=== PATIENT | female | born 1995 | race Caucasian/White ===

== ENCOUNTER 2017-07-09 14:09 | Emergency (ER) | payer BC, SELFPAY ==
[2017-07-09 14:40] VITALS: BP 101/83; PULSE 65; RESP 18; TEMP 36.8; O2SAT 98; BMI 22.1
--- NOTE | 2017-07-09 14:51 | HMH.EDGENADL ---
ED Disposition Clinical Impression: Gastroenteritis Food poisoning Qualifiers: Encounter type: initial encounter Injury intent: undetermined intent Qualified Code(s): T62.94XA - Toxic effect of unspecified noxious substance eaten as food, undetermined, initial encounter Disposition: Home, Self-Care Condition on Discharge: Fair Instructions: DI for Diarrhea and Traveler's Diarrhea -- Adult, DI for Nausea -- Adult Additional Instructions: Clear liquids for 24 to 48 hours and then advance to BRATS diet, then regular Prescriptions: Loperamide HCl [Loperamide] 2 mg PO DIRECTED #30 tab Ondansetron HCl [Zofran 4mg Tab] 4 mg PO Q6H 8 Days #30 tab Referrals: Darcy Fleming MD [Primary Care Provider] - Time of Disposition: 16:47 - Critical Care Critical Care Time: No Attestation: On 07/09/17, the high probability of a clinically significant, sudden or life threatening deterioration of the following system(s) required my full and direct attention, intervention and personal management. The time I documented below is in addition to time spent performing reported procedures but includes the following listed in this critical care notation. Medical Decision Making - Medical Records Medical records reviewed: Yes: I reviewed the patient's medical records. Vital Signs: 07/09/17 14:40 Temperature 98.2 F Temperature Source Oral Pulse Rate [Right Brachial] 65 Respiratory Rate 18 Blood Pressure [Right Arm] 101/83 Blood Pressure Mean [Right Arm] 89 Blood Pressure Source [Right Arm] Automatic Cuff Blood Pressure Position [Right Arm] Sitting 02 Sat by Pulse Oximetry 98 Oxygen Delivery Method Room Air - Lab Data Lab results reviewed: Yes: I reviewed the patient's lab results. Lab Results 07/09/17 14:50: WBC 13.5 H, RBC 5.51 H, Hgb 16.1, Hct 49.2 H, MCV 89.3, MCH 29.2, MCHC 32.8, RDW 12.3, Plt Count 291, MPV 8.3, Neut % (Auto) 84.3 H, Lymph % (Auto) 8.2 L, [place] % (Auto) 6.3, Eos % (Auto) 1.1, Baso % (Auto) 0.2, Neut # (Auto) 11.4 H, Lymph # (Auto) 1.1, [place] # (Auto) 0.9, Eos # (Auto) 0.2, Baso # (Auto) 0.0 07/09/17 14:50: Sodium 141, Potassium 4.5, Chloride 106, Carbon Dioxide 25, Anion Gap 14.5, BUN 10, Creatinine 0.75, Estimated Creat Clear 104, Estimated GFR 96, Est GFR ( Amer) 116, Glucose 101, Calcium 9.5, Total Bilirubin 0.3, AST 13 L, ALT 23, Alkaline Phosphatase 85, Total Protein 9.0 H, Albumin 4.7, Globulin 4.3 H, Albumin/Globulin Ratio 1.1 Result diagrams: 07/09/17 14:50 07/09/17 14:50 Orders (Tests/Meds): ED MEDICATIONS Generic Name Dose Route Start Last Admin Trade Name Freq PRN Reason Stop Dose Admin Sodium Chloride 1,000 mls @ 999 mls/hr 07/09/17 15:45 07/09/17 15:45 Sod Chlor 0.9% 1000ml Bag IV 07/09/17 16:45 999 mls/hr .Q1H1M SHAI Administration Discontinued Medications Generic Name Dose Route Start Last Admin Trade Name Freq PRN Reason Stop Dose Admin Loperamide HCl 4 mg 07/09/17 15:43 07/09/17 15:44 Imodium 2 Mg Capsule PO 07/09/17 15:44 4 mg ONCE ONE Administration Ondansetron HCl 4 mg 07/09/17 15:43 07/09/17 15:45 Zofran 4mg/2ml Vial IV 07/09/17 15:44 4 mg ONCE ONE Administration ORDERS Category Date Time Status KUB (single view) [XR KUB] Stat Exams 07/09/17 14:57 Taken Diarrhea Panel, PCR Stat Lab 07/09/17 14:56 Ordered Lactic Acid Stat Lab 07/09/17 14:56 Ordered Urinalysis and Microscopic Stat Lab 07/09/17 14:56 Ordered - Radiology Data #1 Image(s): Abdomen Image Reviewed: Yes I reviewed the patient's radiology results, Yes I reviewed the patient's radiology image Preliminary Findings: Normal/NAD - Zay Inquiry Pt receiving controlled substance: No Zay was queried for this patient: No General Adult HPI - General Chief complaint: Nausea/Vomiting/Diarrhea Stated complaint: nausea vomiting diarrhea Time Seen by Provider: 07/09/17 14:51 Mode of Arrival: Family Vehicle Limitations: No Limitations Robin
--- NOTE | 2017-07-09 14:57 | XR_ITS ---
XR KUB CLINICAL INDICATION: ITS.REASON: abdominal pain, vomiting, diarrhea ORDERING PHYSICIAN: Kady Faria MD PATIENT AGE: 22 years COMPARISON: None FINDINGS: Nonspecific nonobstructive bowel gas pattern. No abnormal calcifications or acute bony anomalies. IMPRESSION: No acute finding
[2017-07-09 15:16] LABS: Alanine Aminotransferase 23 U/L (12-78); Albumin Level 4.7 gm/dL (3.4-5.0); Albumin/Globulin Ratio 1.1 (1.1-1.8); Alkaline Phosphatase 85 U/L (46-116); Anion Gap 14.5 mEq/L (5-15); Aspartate Amino Transferase 13 U/L (15-37); Bilirubin,Total 0.3 mg/dL (0.2-1.0); Blood Urea Nitrogen 10 mg/dL (7-18); Calcium 9.5 mg/dL (8.5-10.1); Carbon Dioxide 25 mmol/L (21.0-32.0); Chloride 106 mmol/L (98-107); Creatinine Clearance Estimated 104 mL/min (0-300); Creatinine,Serum 0.75 mg/dL (0.55-1.02); Estimated Glomerular Filt Rate 96 ml/min (>60); GFR (African American) 116 ML/MIN (>60); Globulin 4.3 gm/dl (1.3-3.2); Glucose 101 mg/dL (74-106); Potassium 4.5 mmoL/L (3.5-5.1); Sodium 141 mmol/L (136-145)
[2017-07-09 15:20] LABS: Basophils % 0.2 % (0.1-2.0); Eosinophils # 0.2 K/mm3 (0.0-0.4); Eosinophils % 1.1 % (0.1-12.0); Hematocrit 49.2 % (37.0-47.0); Hemoglobin 16.1 g/dL (12.2-16.2); Lymphocytes # 1.1 K/mm3 (0.7-4.5); Lymphocytes % 8.2 K/mm3 (10-50); Mean Corpuscular HGB Conc 32.8 g/dL (31.8-35.4); Mean Corpuscular Hemoglobin 29.2 pg (27.0-31.2); Mean Corpuscular Volume 89.3 fl (81-99); Mean Platelet Volume 8.3 fl (7.4-10.4); Monocytes # 0.9 K/mm3 (0.1-1.0); Monocytes % 6.3 % (1.7-9.3); Neutrophils # 11.4 K/mm3 (1.8-7.8); Neutrophils % 84.3 % (37.0-80.0); Platelet Count 291 K/mm3 (142-424); Red Blood Count 5.51 M/mm3 (4.20-5.40); Red Cell Distribution Width 12.3 % (11.5-17.5); White Blood Count 13.5 K/mm3 (4.8-10.8)
[2017-07-09 17:01] VITALS: BP 121/70; PULSE 78; RESP 20; TEMP 36.6; O2SAT 100
== END 2017-07-09 17:02 | disposition home or self-care (01) ==
PROVIDERS: Emergency Provider General Practice; PCP Family Medicine
DX: T62.94XA Toxic effect of unspecified noxious substance eaten as food, undetermined, initial encounter (principal); K52.9 Noninfective gastroenteritis and colitis, unspecified; F17.210 Nicotine dependence, cigarettes, uncomplicated; Z88.0 Allergy status to penicillin; Z88.2 Allergy status to sulfonamides
CPT/HCPCS: 74018; 80053; 85025; 96365; 96374; 96375; 99283; J2405

== ENCOUNTER → 2017-12-26 14:50 | Outpatient (CLI) | payer BC, SELFPAY ==
[2017-12-26 15:48] LABS: HCG Qualitative, Serum Negative (Negative)
== END ==
PROVIDERS: PCP Family Medicine; Visit Provider Nurse Practitioner Obstetrics & Gynecology
DX: Z32.00 Encounter for pregnancy test, result unknown (principal)
CPT/HCPCS: 36415; 84703

== ENCOUNTER → 2018-12-17 13:11 | Outpatient (CLI) | payer BC, SELFPAY ==
--- NOTE | 2018-12-17 13:17 | XR_ITS ---
XR foot wt bearing LT 3V HISTORY: ITS.REASON: pain, great toe ORDERING PHYSICIAN: Rosemarie Munguia DPM PATIENT AGE: 23 years COMPARISON: None FINDINGS: No fracture or dislocation. No lytic or blastic change. There is normal mineralization.. There is a small osteophyte along the distal and lateral aspect of the first metatarsal. The first metatarsophalangeal joint space is well preserved. IMPRESSION: Mild osteophyte formation at the distal first metatarsal otherwise negative
== END ==
PROVIDERS: PCP Family Medicine; Visit Provider Podiatrist
DX: M79.672 Pain in left foot (principal)
CPT/HCPCS: 73630

== ENCOUNTER → 2019-05-26 14:39 | Outpatient (CLI) | payer BC, SELFPAY ==
--- NOTE | 2019-05-26 14:39 | US_ITS ---
PROCEDURE: US TRANSVAGINAL CLINICAL INDICATION: US T/V- Painful intercourse Collect COMPARISON: No exams were available for comparison FINDINGS: UTERUS: 7cm x 3cmx 3cm with a combined endometrial thickness of 1.8mm LEFT OVARY: [id number] with a volume of 6.7ml. RIGHT OVARY: [id number] with a volume of 7.8ml. Minimal amount of fluid is present within the endometrial canal inferiorly. There are ovarian follicles bilaterally with a 2.3 cm right ovarian cyst noted. No cul-de-sac fluid. IMPRESSION: 2.3 cm right ovarian cyst with small bilateral ovarian follicles and minimal amount fluid in the endometrial cavity Dictated by: Henry Mitchell MD 05/27/2019 07:10 Electronically signed by Henry Mitchell MD in [place] 05/27/2019 07:10
== END ==
PROVIDERS: PCP Family Medicine; Visit Provider Nurse Practitioner Obstetrics & Gynecology
DX: N94.10 Unspecified dyspareunia (principal)
CPT/HCPCS: 76830

== ENCOUNTER → 2020-02-18 16:46 | Outpatient (CLI) | payer BC, SELFPAY ==
[2020-02-18 18:55] LABS: HCG,Quantitative 24435 mIU/ml (0-5.42)
== END ==
PROVIDERS: PCP Family Medicine; Visit Provider Nurse Practitioner Obstetrics & Gynecology
DX: Z32.00 Encounter for pregnancy test, result unknown (principal)
CPT/HCPCS: 36415; 84702

== ENCOUNTER → 2020-03-01 16:54 | Outpatient (CLI) | payer BC, SELFPAY ==
[2020-03-04 10:17] LABS: Neisseria gonorrhoeae, NAA Negative (Negative)
== END ==
PROVIDERS: Visit Provider Nurse Practitioner Obstetrics & Gynecology
DX: Z34.90 Encounter for supervision of normal pregnancy, unspecified, unspecified trimester (principal)
CPT/HCPCS: 87491; 87591

== ENCOUNTER → 2020-03-05 10:26 | Outpatient (CLI) | payer BC, SELFPAY ==
--- NOTE | 2020-03-05 10:33 | US_ITS ---
PROCEDURE: US OB TRANSVAGINAL CLINICAL INDICATION: for dates COMPARISON: US US TRANSVAGINAL from 05/26/2019 FINDINGS: An intrauterine gestational sac is present with a pole with a crown-rump length of 1.9cm correlating to gestational age of 8weeks 2days. heart tones are present with an FHR of 163bpm. Yolk sac is noted. There are bilateral ovarian follicles with possible hemorrhagic corpus luteum cyst on the left at 1.4 cm. IMPRESSION: Live IUP at 8 weeks 2 days Estimated due date by Ultrasound is 10/13/2020 Dictated by: Henry Mitchell MD 03/05/2020 11:34 Henry Mitchell MD in [facility] 03/05/2020 11:34
== END ==
PROVIDERS: PCP Family Medicine; Visit Provider Nurse Practitioner Obstetrics & Gynecology
DX: Z34.90 Encounter for supervision of normal pregnancy, unspecified, unspecified trimester (principal); O26.841 Uterine size-date discrepancy, first trimester
CPT/HCPCS: 76817

== ENCOUNTER → 2020-04-21 14:23 | Outpatient (CLI) | payer MEDICAID, SELFPAY ==
[2020-04-21 15:52] LABS: Basophils % 0.3 % (0.1-2.0); Eosinophils # 0.1 K/mm3 (0.0-0.4); Eosinophils % 1.2 % (0.1-12.0); Hematocrit 41.4 % (37.0-47.0); Hemoglobin 13.2 g/dL (12.2-16.2); Lymphocytes # 2.6 K/mm3 (0.7-4.5); Lymphocytes % 26.6 % (10-50); Mean Corpuscular HGB Conc 31.8 g/dL (31.8-35.4); Mean Corpuscular Hemoglobin 30.6 pg (27.0-31.2); Mean Corpuscular Volume 96.3 fl (81-99); Mean Platelet Volume 8.7 fl (7.4-10.4); Monocytes # 0.7 K/mm3 (0.1-1.0); Monocytes % 7.4 % (1.7-9.3); Neutrophils # 6.4 K/mm3 (1.8-7.8); Neutrophils % 64.5 % (37.0-80.0); Platelet Count 254 K/mm3 (142-424); Red Cell Distribution Width 12.7 % (11.5-17.5); White Blood Count 9.9 K/mm3 (4.8-10.8)
[2020-04-23 10:41] LABS: Hepatitis B Surface Antigen Negative (Negative)
[2020-04-23 10:42] LABS: HIV Screen 4th Generation wRfx Non Reactive (Non Reactive); Hepatitis C Antibody <0.1 s/co ratio (0.0-0.9); Rubella Antibodies, IgG 8.81 index (Immune >0.99)
[2020-04-23 13:02] LABS: Rapid Plasma Reagin Ab Titer Non Reactive (NonRea<1:1)
== END ==
PROVIDERS: Visit Provider Nurse Practitioner Obstetrics & Gynecology
DX: Z34.90 Encounter for supervision of normal pregnancy, unspecified, unspecified trimester (principal)
CPT/HCPCS: 36415; 85025; 86592; 86703; 86762; 86850; 87340; 87380; G0432

== ENCOUNTER → 2020-04-22 13:36 | Outpatient (CLI) | payer MEDICAID, SELFPAY ==
[2020-04-22 13:39] LABS: Microscopic, Urine URINE MICROSCOPIC (MICROSCOPIC)
[2020-04-22 14:28] LABS: Appearance,Urine CLEAR (Clear); Bilirubin,Urine Negative (Negative); Blood, Urine Negative (Negative); Color,Urine YELLOW (Yellow); Glucose,Urine (UA) Negative (Negative); Ketones,Urine Negative (Negative); Leukocyte Esterase,Urine TRACE (Negative); Nitrate,Urine Negative (Negative); PH,Urine 7.5 (5.0-8.5); Protein,Urine Negative (Negative); Specific Gravity, Urine 1.025 (1.005-1.030); Urobilinogen,Urine 0.2 EU/dl (0.2)
[2020-04-22 14:45] LABS: WBC,Urine Occasional #/hpf (0-3)
[2020-04-22 14:46] LABS: Bacteria,Urine Trace /lpf
== END ==
PROVIDERS: Visit Provider Nurse Practitioner Obstetrics & Gynecology
DX: Z34.90 Encounter for supervision of normal pregnancy, unspecified, unspecified trimester (principal)
CPT/HCPCS: 81001

== ENCOUNTER → 2020-05-27 08:58 | Outpatient (CLI) | payer MEDICAID, SELFPAY ==
--- NOTE | 2020-05-27 08:58 | US_ITS ---
PROCEDURE: US OB /MATERNAL DETAIL CLINICAL INDICATION: 20 week gestation COMPARISON: US US OB TRANSVAGINAL from 03/05/2020 FINDINGS: There is a single live fetus which is in breech presentation. Cervix is closed and measures 4 cm. Placenta is anterior and grade 1. There appears to be an accessory lobe posteriorly. Complete survey performed and was unremarkable on the submitted images as in PACS. No discrete anomalies identified on survey imaging by technologist. Active fetus. Three-vessel cord with satisfactory umbilical cord insertion. 4- chamber heart noted. Survey of brain & ventricles Unremarkable. Face and neck survey unremarkable. Diaphragm and chest views unremarkable. Abdomen: Both kidneys noted and unremarkable. Stomach noted and satisfactory. Spine: Survey of the spine satisfactory with no anomalies identified nor imaged. Both arms and legs noted. Amniotic Fluid: Adequate. Maternal adnexa: No significant findings. Measurements: Average ultrasound age 20weeks 3days. Gestational Age 20weeks 2days Estimated due date by ultrasound age 0510/11/2020. Estimated weight 353g BPD = 20weeks 5days OFD = 20weeks 5days HC = 19weeks 6days AC = 21weeks 2days FL = 19weeks 5days Growth Percentile= 53percent% Heart Rate = 139bpm Cerebellum = 20weeks 6days, 2.05cm Humerus = 20weeks 5days, 3.20cm HC/AC is 1.07 CI is 0.79 FL/BPD is 0.64 FL/AC is 0.19 IMPRESSION: Live IUP at 20 weeks 3 days. Breech presentation. No obvious anomalies. Please see above for detail. Dictated by: Henry Mitchell MD 05/28/2020 10:10 Henry Mitchell MD in [facility] 05/28/2020 10:10
== END ==
PROVIDERS: PCP Family Medicine; Visit Provider Nurse Practitioner Obstetrics & Gynecology
DX: Z34.90 Encounter for supervision of normal pregnancy, unspecified, unspecified trimester (principal); Z3A.20 20 weeks gestation of pregnancy
CPT/HCPCS: 76811

== ENCOUNTER 2020-09-09 17:40 | Outpatient (CLI) | payer MEDICAID, SELFPAY ==
[2020-09-09 17:50] VITALS: BMI 28.1
[2020-09-09 17:54] VITALS: BP 116/73; PULSE 87; RESP 16; TEMP 37.1; O2SAT 99; BMI 28.1
[2020-09-09 18:00] LABS: Microscopic, Urine URINE MICROSCOPIC (MICROSCOPIC)
[2020-09-09 18:01] LABS: Appearance,Urine CLOUDY (Clear); Bilirubin,Urine Negative (Negative); Blood, Urine Negative (Negative); Color,Urine YELLOW (Yellow); Glucose,Urine (UA) Negative (Negative); Ketones,Urine Negative (Negative); Leukocyte Esterase,Urine 2+ (Negative); Nitrate,Urine Negative (Negative); Protein,Urine Negative (Negative); Specific Gravity, Urine >= 1.030 (1.005-1.030); Urobilinogen,Urine 0.2 EU/dl (0.2)
[2020-09-09 18:08] LABS: Bacteria,Urine 4+ /lpf; Mucus,Urine 2+ /lpf; WBC,Urine 20-50 #/hpf (0-3)
[2020-09-09 18:17] LABS: Amphetamine/Metha Screen,Urine Negative ng/ml (<1000); Barbiturates Screen,Urine Negative ng/ml (<200)
[2020-09-09 18:18] LABS: Benzodiazepines Screen,Urine Negative ng/ml (<200); Cannabinoid Screen,Urine Negative ng/ml (<50)
[2020-09-09 18:19] LABS: Cocaine Screen,Urine Negative ng/ml (<300)
[2020-09-09 18:20] LABS: Methadone Screen,Urine Negative ng/ml (<300); Opiate Screen,Urine Negative ng/ml (<300)
[2020-09-09 18:23] LABS: Phencyclidine Screen,Urine Negative ng/ml (<25)
== END 2020-09-09 18:30 | disposition home or self-care (01) ==
LOC: OBOUT 17:42 → OB 17:45
PROVIDERS: PCP Family Medicine; Visit Provider Obstetrics & Gynecology
DX: O36.8130 Decreased fetal movements, third trimester, not applicable or unspecified (principal); Z3A.35 35 weeks gestation of pregnancy
CPT/HCPCS: 59025; 80305; 81001; 87086; G0463

== ENCOUNTER → 2020-09-15 17:32 | Outpatient (CLI) | payer MEDICAID, SELFPAY | PROVIDERS: Visit Provider Nurse Practitioner Obstetrics & Gynecology | DX: Z34.90 Encounter for supervision of normal pregnancy, unspecified, unspecified trimester (principal) | CPT/HCPCS: 86403; 88305 ==

== ENCOUNTER → 2020-10-10 09:58 | Outpatient (CLI) | payer MEDICAID, SELFPAY | PROVIDERS: PCP Family Medicine; Visit Provider Nurse Practitioner Obstetrics & Gynecology | DX: Z11.52 Encounter for screening for COVID-19 (principal) | CPT/HCPCS: U0003 ==

== ENCOUNTER 2020-10-11 05:14 | Inpatient (IN) | payer MEDICAID, SELFPAY ==
[2020-10-11 05:27] VITALS: BMI 28.4
[2020-10-11 05:58] LABS: Microscopic, Urine URINE MICROSCOPIC (MICROSCOPIC)
[2020-10-11 06:00] VITALS: BP 117/66; PULSE 81; RESP 18; TEMP 36.6; O2SAT 97; BMI 28.4
[2020-10-11 06:02] LABS: Basophils % 0.3 % (0.1-2.0); Eosinophils # 0.2 K/mm3 (0.0-0.4); Eosinophils % 1.3 % (0.1-12.0); Hematocrit 35.4 % (37.0-47.0); Hemoglobin 11.5 g/dL (12.2-16.2); Lymphocytes # 3.9 K/mm3 (0.7-4.5); Lymphocytes % 25.4 % (10-50); Mean Corpuscular HGB Conc 32.6 g/dL (31.8-35.4); Mean Corpuscular Hemoglobin 29.2 pg (27.0-31.2); Mean Corpuscular Volume 89.4 fl (81-99); Mean Platelet Volume 9.1 fl (7.4-10.4); Monocytes # 1.4 K/mm3 (0.1-1.0); Monocytes % 9.5 % (1.7-9.3); Neutrophils # 9.6 K/mm3 (1.8-7.8); Neutrophils % 63.4 % (37.0-80.0); Platelet Count 408 K/mm3 (142-424); Red Blood Count 3.95 M/mm3 (4.20-5.40); Red Cell Distribution Width 13.1 % (11.5-17.5); White Blood Count 15.1 K/mm3 (4.8-10.8)
[2020-10-11 06:03] LABS: Appearance,Urine SL CLOUDY (Clear); Bilirubin,Urine Negative (Negative); Blood, Urine Negative (Negative); Color,Urine YELLOW (Yellow); Glucose,Urine (UA) Negative (Negative); Ketones,Urine Negative (Negative); Leukocyte Esterase,Urine 3+ (Negative); Nitrate,Urine Negative (Negative); Protein,Urine Negative (Negative); Urobilinogen,Urine 0.2 EU/dl (0.2)
[2020-10-11 06:05] LABS: MANUAL DIFFERENTIAL MANUAL DIFFERENTIAL (MANUAL DIFF)
[2020-10-11 06:13] LABS: Bacteria,Urine 1+ /lpf; WBC,Urine 20-50 #/hpf (0-3)
[2020-10-11 06:14] LABS: Barbiturates Screen,Urine Negative ng/ml (<200); Benzodiazepines Screen,Urine Negative ng/ml (<200)
[2020-10-11 06:15] LABS: Amphetamine/Metha Screen,Urine Negative ng/ml (<1000); Methadone Screen,Urine Negative ng/ml (<300)
[2020-10-11 06:16] LABS: Cannabinoid Screen,Urine Negative ng/ml (<50)
[2020-10-11 06:17] LABS: Cocaine Screen,Urine Negative ng/ml (<300); Opiate Screen,Urine Negative ng/ml (<300)
[2020-10-11 06:18] LABS: Phencyclidine Screen,Urine Negative ng/ml (<25)
[2020-10-11 06:58] LABS: Lymphocytes % 18 % (10-50); Monocytes % 5 % (2-9); Neutrophils % 77 % (42-76); Platelet Estimate Normal; RBC Morphology Normal; Total Cells Counted 100
--- NOTE | 2020-10-11 07:28 | HMH.LABNOT ---
Labor Note - Subjective: Date: 10/11/20 Time: 07:28 regular contraction - Objective: NST:: Reactive Contractions:: every 4-5 minutes Cervical Dilation:: 2 Effacement:: 75% Station: -1 Membranes: artificially ruptured - Fetus: Monitoring?: Yes monitoring type:: Internal and External Comment:: I inserted an IUPC. 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
--- NOTE | 2020-10-11 07:29 | HMH.OBAPHP ---
OB - H&P: HPI Antepartum - History of Present Illness Chief complaint: Term History of present illness: She is a 25-year-old 1 para 0 at 40 weeks gestational age. She is term so we have decided to induce her labor. - History of Present Criteria for establishing EDC:: LMP confirmed by 1st trimester US care: good care Ultrasounds: normal 1st trimester US, normal mid trimester US Obstetrical complications: none Medical complications: none [facility] History I have reviewed the patient's past medical history: Yes Medical History: Reports:: Atrial Fibrillation, Cancer, Cardiomyopathy, Urinary Tract Infection Denies:: Diabetes Mellitus Type 1, Diabetes Mellitus Type 2, Hypertension, MRSA *Have you ever received a pneumonia vaccine?: No *Have you received a flu vaccine this season?: No Other Surgeries: Yes: Other. No: Amputation: No Fractures: No - *Social History Smoking Status: Current every day smoker Tobacco Type: cigarettes # Packs/Day (cigarettes): 1 Alcohol Intake: never Alcohol Intake Frequency:: other Substance Use Type: marijuana *Occupational Status:: employed Housing: house *Travel in the last 8 weeks: None Family Hx:: Diabetes, Hypertension Para: 0 Review of Systems - Review of Systems Review of systems:: pertinent systems reviewed and negative unless documented below Meds Home Medications Medication Instructions Recorded Confirmed Type pediatric multivitamin no.19-folic tab PO BID tab 03/25/20 10/06/20 History acid 200 mcg chewable tablet ferrous gluconate 324 mg (37.5 mg 324 mg PO DAILY #30 tab 06/23/20 10/06/20 Rx iron) tablet Allergies Allergy/AdvReac Type Severity Reaction Status Date / Time Penicillins [PENICILLINS] Allergy Unknown Verified 10/06/20 14:08 Sulfa (Sulfonamide Allergy Unknown Verified 10/06/20 14:08 Antibiotics) [SULFA (SULFONAMIDE ANTIBIOTICS)] adhesive tape Allergy Rash Verified 10/06/20 14:08 OB - H&P: Exam - Physical Exam Vital signs: Temp Pulse Resp BP Pulse Ox 97.8 F 81 18 117/66 97 10/11/20 06:00 10/11/20 06:00 10/11/20 06:00 10/11/20 06:00 10/11/20 06:00 - Constitutional no acute distress - Routine HEENT Exam Head: Present: normocephalic Eye: Present: EOMI, PERRL ENT: Present: mucous membranes moist - Routine Neck Exam Present: supple, full ROM - Routine Respiratory Exam Absent: accessory muscle use (good air entry bilaterally), respiratory distress, wheezes, crackles - Routine Cardiovascular Exam Present: RRR. Absent: murmur - Routine Abdominal Exam Present: soft, normoactive bowel sounds. Absent: tenderness, distended, guarding - Routine Rectal Exam Patient deferred: visual exam, digital exam - Routine Exam Patient deferred: external exam, groin exam, perineal exam - Routine Extremities Exam Present: full ROM. Absent: cyanosis, edema - Routine Skin Exam Present: intact. Absent: cyanosis - Routine Neurological Exam Present: alert, oriented X3 - Routine Psychiatric Exam Present: normal affect OB - Results - Labs Labs: Short CBC 10/11/20 Range/Units 05:45 WBC 15.1 H (4.8-10.8) K/mm3 Hgb 11.5 L (12.2-16.2) g/dL Hct 35.4 L (37.0-47.0) % Plt Count 408 (142-424) K/mm3 Urine 10/11/20 Range/Units 05:30 Urine Color Yellow (Yellow) Urine Appearance Sl cloudy (Clear) Urine pH 7.0 (5.0-8.5) Ur Specific [place] 1.020 (1.005-1.030) Urine Protein Negative (Negative) Urine Glucose (UA) Negative (Negative) OB - A/P Antepartum (1) Normal delivery at term Status: Acute - Additional Plan Planning to breastfeed?: Yes Plan: induction Additional Information:: She is currently on oxytocin. She is having contractions. She is 2 cm. I ruptured her membranes and there was clear fluid. An IUPC was inserted. We will expect a vaginal delivery.
[2020-10-11 07:30] VITALS: BP 108/84; PULSE 71; RESP 18; TEMP 36.5; O2SAT 99
[2020-10-11 11:29] VITALS: BP 119/71; PULSE 53; RESP 16; TEMP 36.4
--- NOTE | 2020-10-11 11:32 | HMH.LABNOT ---
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 Her cervix is dilating. She is now 4 cm. Nonstress test is reactive. Contractions are every 2 minutes.
--- NOTE | 2020-10-11 14:56 | HMH.LABNOT ---
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 The nonstress test is reactive. She has changed her cervix from 4 to 5 cm. The cervix is thinned out more. She is very uncomfortable and would like an epidural.
[2020-10-11 15:04] VITALS: BP 105/59; PULSE 61; RESP 16; TEMP 36.4; O2SAT 98
--- NOTE | 2020-10-11 17:20 | HMH.LABNOT ---
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
[2020-10-11 19:26] VITALS: BP 145/63; PULSE 102; RESP 18; TEMP 36.6; O2SAT 100
--- NOTE | 2020-10-11 20:28 | HMH.LABNOT ---
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 The baby's head is coming down. There seems to be adequate space for the baby's head. We will expect a vaginal delivery.
--- NOTE | 2020-10-11 21:36 | HMH.DN ---
- Delivery Note Delivery Date:: 10/11/20 Delivery Time:: 20:50 Anesthesia Type: Epidural Was labor medically induced?: Yes Induction method: per pitocin protocol Gestational age (weeks): 40 Infant delivered prior to 39 weeks?: No Infant Gender: Male at 1 minute: 9 at 5 minutes: 9 LAC or MLE?: LAC Delivery Procedure:: She is a 25-year-old 1 para 0 at 40 weeks gestational age. We brought her in for induction of labor at term. She is started on IV oxytocin had her membranes ruptured. Under labor epidural she progressed to full dilation and delivered spontaneously a liveborn male child at 8:50 PM in the evening of October 11, 2020. On deliver the head it was noted that the shoulder was having difficulty releasing so we performed Devi along with suprapubic pressure. This freed up the anterior shoulder and the rest the 's body then delivered atraumatically. The baby was stimulated and cried and was quite vigorous. The oropharynx and nasopharynx were bulb suction. We allowed the cord to continue to pulsate for approximately 1 minute. The cord was then doubly clamped and cut and the infant was handed off to Dr. Hale who assigned Apgars of 9 at 1 minute and 9 at 5 minutes. We then obtained cord blood as well as cord pH. The baby was a liveborn male child weighing 8 pounds 13 ounces. He was 20-1/2 inches long. She received IV oxytocin using gentle traction the cord and countertraction on the fundus I was able to easily deliver the placenta 3 minutes after delivery. It had a normal three-vessel cord. She had a very short perineum and unfortunately had 4th degree perineal laceration. The rectal mucosa was closed with interrupted 2-0 Vicryl suture. This was followed by grasping the sphincter muscles and closing ease with interrupted [id number] 2-0 PDS suture. I then closed the vaginal closed using running 2-0 Vicryl suture in a locked fashion. The PDS sutures were then tied. I then closed the peritoneum using interrupted 2-0 Vicryl suture in a subcuticular fashion. She has a positive blood, she is rubella immune and was group B streptococcus negative. She plans to breast-feed. 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 Hale. Her estimated blood loss was approximately 400 cc. Laceration:: vaginal Placental Delivery Description: Spontaneous
[2020-10-12 03:21] VITALS: BP 108/56; PULSE 69; RESP 18; TEMP 36.6; O2SAT 98
[2020-10-12 06:48] LABS: Hematocrit 31.6 % (37.0-47.0); Hemoglobin 10.4 g/dL (12.2-16.2)
[2020-10-12 07:48] VITALS: BP 121/81; PULSE 72; RESP 18; TEMP 36.7; O2SAT 98
--- NOTE | 2020-10-12 08:57 | P.PN_ITS ---
[facility] Anesthesia Checklist - Structural Data Admitted From: Inpatient Planned Operative Procedure/s: labor epidural Consent for Planned Operative Procedure(s) Verified: Yes - Airway Assessment C-Spine Mobility Assessed: Yes TMJ Mobility Assessed: Yes Dentition: Good Dentition - Neurological Assessment Level of Consciousness: Awake, Alert, Appropriate - Anesthesia Plan Anesthesia Risk discussed: Yes Anesthesia Plan: Verified ASA Class: II Anesthesia Type: Epidural [facility] History I have reviewed the patient's past medical history: Yes Medical History: Reports:: Atrial Fibrillation, Cancer, Cardiomyopathy, Urinary Tract Infection Denies:: Diabetes Mellitus Type 1, Diabetes Mellitus Type 2, Hypertension, MRSA *Have you ever received a pneumonia vaccine?: No *Have you received a flu vaccine this season?: No Anesthesia experience/problems:: none Other Surgeries: Yes: Other. No: Amputation: No Fractures: No - *Social History Smoking Status: Current every day smoker Tobacco Type: cigarettes # Packs/Day (cigarettes): 1 Alcohol Intake: never Alcohol Intake Frequency:: other Substance Use Type: marijuana *Occupational Status:: employed Housing: house *Travel in the last 8 weeks: None Family Hx:: Diabetes, Hypertension Para: 0
--- NOTE | 2020-10-12 09:11 | HMH.ACPN2 ---
Internal Medicine - PN: Subj *Date: 10/12/20 *Time: 09:12 Interval history: She continues to do very well this morning. We will plan to send her home tomorrow. Exam Vital signs and Labs for Last 24 Hours: Temp Pulse Resp BP Pulse Ox 98.0 F 72 18 121/81 98 10/12/20 07:48 10/12/20 07:48 10/12/20 07:48 10/12/20 07:48 10/12/20 07:48 Laboratory Results - last 24 hr 10/11/20 21:14: Specimen Source Cancelled, O2 % Cancelled, ABG pH Cancelled, ABG pCO2 Cancelled, ABG pO2 Cancelled, ABG HCO3 Cancelled, ABG Total CO2 Cancelled, ABG O2 Saturation Cancelled, ABG Base Excess Cancelled, Henry Test Cancelled, Vent Rate Cancelled, Tidal Volume Cancelled, PEEP Cancelled 10/11/20 21:27: Cord ABG pH 7.30 L 10/12/20 06:30: Hgb 10.4 L, Hct 31.6 L I & O for Last 24 hours: Intake & Output 10/09/20 10/10/20 10/11/20 10/12/20 11:59 11:59 11:59 11:59 Weight 171 lb Microbiology Reports for the Last 24 Hours: Microbiology 10/11/20 05:30 Urine,Clean Catch Urine Culture - Preliminary NO GROWTH AFTER 24 HOURS - Constitutional no acute distress - *Routine HEENT Exam Head: Present: normocephalic Eye: Present: EOMI, PERRL ENT: Present: mucous membranes moist Assessment and Plan (1) Normal delivery at term Status: Acute Category: Medical Code(s): O80 - Encounter for full-term uncomplicated delivery (2) Fourth degree perineal tear during delivery with problem Status: Acute Category: Medical Code(s): O70.3 - Fourth degree perineal laceration during delivery - Assessment and plan all Dx Assessment and Plan for all problems:: She continues to do well this morning. She did have 4th degree perineal laceration. She is quite tender. She will continue with ice packs as well as sits baths. We will plan to send her home tomorrow.
[2020-10-12 12:00] VITALS: BP 125/77; PULSE 64; RESP 20; TEMP 36.7; O2SAT 98
--- NOTE | 2020-10-12 12:53 | SW/DCPLANNER ---
Addendum entered by Jennifer Scruggs 10/12/20 15:06: Per Central Intake this referral did NOT meet criteria. I will relay information to patients nurse (Mary Olivo). Original Note: I received a referral regarding UDS positive for THC during visits. Patient was positive for THC on: 03/01/20, 03/25/20, 05/27/20, 06/23/20 and 07/21/20. Patient and infant urine drug screen were NEGATIVE at admission. Infant male (Jeramie Barroso) was born on 10/11/2021. Infants father (Kamran Barroso 03/03/89) was present at time of my visit. This is patients first child and fathers second child. Patient, Kamran and will reside at [address] [place] [address]. Patients contact number is [phone]. Patient is currently established with [facility] and is interested in HANDS: I will ask Charline with HANDS to follow up with patient. Patient state that she does have: carseat, crib, clothing, diapers and will be . Patient stated that THC use was due to nausea and to increase appetite. The plan is for this patient and infant to discharge tomorrow pending no setbacks. I have reported this to Central Intake due to positive THC use. ID# [id number]
[2020-10-12 16:50] VITALS: BP 109/71; PULSE 71; RESP 18; TEMP 36.5; O2SAT 98
[2020-10-12 19:52] VITALS: BP 130/68; PULSE 78; RESP 18; TEMP 36.8; O2SAT 99
[2020-10-13 04:23] VITALS: BP 102/61; PULSE 56; RESP 18; TEMP 36.6; O2SAT 96
[2020-10-13 08:00] VITALS: BP 119/59; PULSE 66; RESP 18; TEMP 36.6; O2SAT 98
--- NOTE | 2020-10-13 10:59 | HMH.OBDCSM ---
General - General Admission date:: 10/11/20 Discharge date: 10/13/20 HPI - History of Present Illness History of present illness: She is a 25-year-old 1 now para 0 who was 40 weeks gestational age. We brought her in for induction of labor. Hospital Course Hospital Course: She was started on IV oxytocin had her membranes ruptured. Under labor epidural she progressed to full dilation and delivered spontaneously a liveborn male child at 8:32 PM in the evening of October 11, 2020. The baby weighed 8 pounds 13 ounces and had Apgars of 9 at 1 minute and 9 at 5 minutes. She had 4? perineal laceration that was repaired in the usual fashion. She had a very short perineum. 2-0 PDS suture was used for the anal sphincter. She has done well and has remained afebrile with her hospitalization. She is eating and drinking and ambulating. She is breast-feeding. Her photographic process screen maker is Dr. Hale. She has a positive blood, she is rubella immune and was group B streptococcus negative. She will be discharged home to follow-up with me in approximately 2 weeks time. She will continue with her vitamins and iron. She was given the usual instructions with respect to limiting her activity, driving and sexual activity. She was given a prescription for Percocet 5/325 number 12 tablets. She was also given a prescription for Colace 100 mg to take twice daily. Her condition on discharge is stable and improved. Rhogam Administration: Not Indicated Objective Vital signs: Temp Pulse Resp BP Pulse Ox 97.9 F 66 18 119/59 L 98 10/13/20 08:00 10/13/20 08:00 10/13/20 08:00 10/13/20 08:00 10/13/20 08:00 no acute distress - *Routine HEENT Exam Head: Present: normocephalic Eye: Present: EOMI, PERRL ENT: Present: mucous membranes moist - *Routine Neck Exam Present: supple DS: Diagnosis - Discharge Diagnosis (1) Normal delivery at term Status: Acute (2) Fourth degree perineal tear during delivery with problem Status: Acute Discharge Plan - Patient Discharge Instructions ACTIVITY: No heavy lifting DIET: continue same diet Additional Instructions: No heavy lifting/strenuous activity. Nothing in the vagina for 6 weeks. Follow up with MD as scheduled. Patient Instructions: Depression, Hemorrhage, DI for Labor and Delivery, Vaginal , DI for Pre-eclampsia, [facility] Post Discharge Instructions, Preventing the Spread of Coronavirus Discharge Instructions - Follow up Plan Follow up with: Mariusz Augustin MD [Staff Physician] - Disposition: Home, Self-Care Condition at discharge:: Stable Home Medications: Home Medications Medication Instructions Recorded Confirmed Type pediatric multivitamin no.19-folic 200 mcg PO BID tab 03/25/20 10/11/20 History acid 200 mcg chewable tablet Ferrous Gluconate [Ferrous 324 mg PO DAILY 10/11/20 10/11/20 History Gluconate 324mg Tab] Docusate Sodium [Colace] 100 mg PO BID #60 cap 10/13/20 Rx Oxycodone HCl/Acetaminophen 1 tab PO Q4-6H PRN #12 tab 10/13/20 Rx [Percocet 5/325mg tablet] Prescriptions/Medication Reconciliation: New Oxycodone HCl/Acetaminophen [Percocet 5/325mg tablet] 1 tab PO Q4-6H PRN #12 tab PRN Reason: Severe Pain Docusate Sodium [Colace] 100 mg PO BID #60 cap Continued Ferrous Gluconate [Ferrous Gluconate 324mg Tab] 324 mg PO DAILY No Action pediatric multivitamin no.19-folic acid 200 mcg chewable tablet 200 mcg PO BID tab - Problem Reconciliation Problems Reviewed?: Yes
== END 2020-10-13 14:40 | disposition home or self-care (01) | DRG 768 ==
PROVIDERS: Admitting Provider Nurse Practitioner Obstetrics & Gynecology; PCP Family Medicine; Visit Provider Nurse Practitioner Obstetrics & Gynecology
DX: O70.3 Fourth degree perineal laceration during delivery (principal); Z37.0 Single live birth; O99.334 Smoking (tobacco) complicating childbirth; F17.210 Nicotine dependence, cigarettes, uncomplicated; Z88.0 Allergy status to penicillin; Z88.2 Allergy status to sulfonamides; Z91.048 Other nonmedicinal substance allergy status; Z3A.40 40 weeks gestation of pregnancy
CPT/HCPCS: 59409; 59025; 80305; 81001; 82800; 82803; 85007; 85014; 85018; 85025; 86850; 87086; 94761; C1758; G0283; J0595; U0003

== ENCOUNTER 2021-03-06 13:58 | Emergency (ER) | payer MEDICAID, SELFPAY ==
[2021-03-06 14:45] VITALS: BP 102/76; PULSE 60; RESP 20; TEMP 36.8; O2SAT 100; BMI 20.7
[2021-03-06 15:20] LABS: Apearance,Urine Cloudy (Clear); Blood, Urine Trace (Negative); Color,Urine Dark Yellow (Yellow); Glucose,Urine (UA) Negative (Negative); Ketones,Urine TRACE (Negative); PH,Urine 5.5 (5.0-8.5); Protein,Urine 1+ (Negative)
[2021-03-06 15:21] LABS: Bilirubin,Urine 1+ (Negative); UTC Leukocyte Esterase,Urine Trace (Negative); UTC Nitrate,Urine Negative (Negative); Urobilinogen,Urine 0.2 EU/dl (0.2)
--- NOTE | 2021-03-06 15:29 | HMH.EDUTC ---
[facility] [place] Disposition Clinical Impression: Screen for STD (sexually transmitted disease) UTI (urinary tract infection) Qualifiers: Urinary tract infection type: site unspecified Hematuria presence: with hematuria Qualified Code(s): N39.0 - Urinary tract infection, site not specified Disposition: Home, Self-Care Condition on Discharge: Good Instructions: Herpes (Alternative Therapy), DI for Genital Herpes Additional Instructions: No sex until you get your test results back and are negative Follow up with your OBGYN for further evaluation and treatment Make sure to follow up with your Family Doctor in the next 5-7 days to discuss lab results and further treatment REturn if needed Straight to ER if any life threatening symptoms *Increase fluids. Water not Soda or Tea *Start antibiotic immediately and be sure to take as ordered for the FULL length of time although you should start to see improvement over the next 48 hours *Be SURE to follow up anytime for new or worsening symptoms with your family doctor. AND in 48 hours for urine culture results with your family doctor, if you do not have a doctor then you may call back to the [facility] for urine culture results and further treatment. We do recommend that you choose and establish care with a Primary Care Physician. AND follow up with them in 10-14 days to repeat UA to ensure infection is resolved and blood no longer present *Be sure to let your PCP know that we sent urine cultures from the [facility] so they can follow up to ensure that you area the on the correct antibiotic Call your doctor office and make appointment for 48 hours (2 days from today) to follow up and get the results of your urine culture and further treatment Prescriptions: Acyclovir 400 mg PO TID 10 Days #30 tab Transmission Status: Pending to [id number] Nitrofurantoin Monohyd/M-Cryst [Macrobid 100 mg Capsule] 100 mg PO BID 5 Days #10 cap Transmission Status: Pending to [facility] Referrals: Anish Hlae MD [Primary Care Provider] - As needed Time of Disposition: 15:42 Medical Decision Making - Zay Inquiry Pt receiving controlled substance: No Zay was queried for this patient: No Vital Signs: 03/06/21 14:45 03/06/21 15:43 Temperature 98.2 F 98.2 F Temperature Source Oral Pulse Rate 60 Pulse Rate [Left Brachial] 60 Respiratory Rate 20 20 Blood Pressure 102/76 L Blood Pressure [Left Arm] 102/76 L Blood Pressure Mean [Left Arm] 84 Blood Pressure Source [Left Arm] Automatic Cuff Blood Pressure Position [Left Arm] Sitting 02 Sat by Pulse Oximetry 100 Oxygen Delivery Method Room Air - Lab Data Lab results reviewed: Yes: I reviewed the patient's lab results. Lab Results 03/06/21 15:03: Urine Color Dark yellow, Urine Appearance Cloudy, Urine pH 5.5, Ur Specific [place] 1.030, Urine Protein 1+, Urine Glucose (UA) Negative, Urine Ketones Trace, Urine Blood Trace, Urine Nitrate Negative, Urine Bilirubin 1+ A, Urine Urobilinogen 0.2, Ur Leukocyte Esterase Trace Orders (Tests/Meds): ORDERS Category Date Time Status HSV 1/2 PCR, (BLOOD/SWAB) Routine Lab 03/06/21 15:21 Ordered Urinalysis and Microscopic Stat Lab 03/06/21 15:22 Ordered Urine Culture Stat Micro 03/06/21 15:23 Ordered [facility] [place] HPI - General Stated complaint: vaginal bumps, painful urination Time Seen by Provider: 03/06/21 15:29 Mode of Arrival: Ambulatory Source of Information: Patient Limitations: No Limitations Description of Symptoms (Recalled from Triage Doc. by RN): PATIENT C/O PAINFULL BUMPS TO GENITALS AND BURNING/PAIN WITH URINATION X 3 DAYS HEENT Symptoms (Recalled from RN notes): No Resp Symptoms (Recalled from RN notes): No Skin Symptoms (Recalled from RN notes): No MS Symptoms (Recalled from RN notes): No Functional Status (Recalled from RN notes): WNL - History of Present Illness Provider Complaint: Patient states that she has a history of HPV but she has [facility]
[2021-03-06 15:43] VITALS: BP 102/76; PULSE 60; RESP 20; TEMP 36.8; O2SAT 100
[2021-03-06 15:50] LABS: Microscopic, Urine URINE MICROSCOPIC (MICROSCOPIC)
[2021-03-06 15:59] LABS: Appearance,Urine CLEAR (Clear); Blood, Urine Negative (Negative); Color,Urine DK YELLOW (Yellow); Glucose,Urine (UA) Negative (Negative); Ketones,Urine TRACE (Negative); Leukocyte Esterase,Urine TRACE (Negative); Nitrate,Urine Negative (Negative); Protein,Urine TRACE (Negative); Specific Gravity, Urine >= 1.030 (1.005-1.030); Urobilinogen,Urine 0.2 EU/dl (0.2)
[2021-03-06 16:11] LABS: Bilirubin,Urine Negative (Negative)
[2021-03-06 16:12] LABS: Bacteria,Urine 3+ /lpf; Mucus,Urine 4+ /lpf
[2021-03-08 21:07] LABS: Neisseria gonorrhoeae, NAA Negative (Negative)
[2021-03-11 13:10] LABS: HSV-1 DNA Negative (Negative); HSV-2 DNA Negative (Negative)
== END 2021-03-06 15:50 | disposition home or self-care (01) ==
PROVIDERS: Emergency Provider Nurse Practitioner; PCP Family Medicine
DX: Z11.3 Encounter for screening for infections with a predominantly sexual mode of transmission (principal); N30.00 Acute cystitis without hematuria; I48.91 Unspecified atrial fibrillation; F17.210 Nicotine dependence, cigarettes, uncomplicated; Z88.0 Allergy status to penicillin; Z88.2 Allergy status to sulfonamides
CPT/HCPCS: 81001; 81003; 87086; 87491; 87529; 87591; 99203; G0463

== ENCOUNTER → 2021-03-31 13:56 | Outpatient (CLI) | payer MEDICAID, SELFPAY ==
--- NOTE | 2021-03-31 14:02 | US_ITS ---
PROCEDURE: US OB <= 14 WEEKS FETUS CLINICAL INDICATION: for dates COMPARISON: US US OB /MATERNAL DETAIL from 05/27/2020 FINDINGS: An intrauterine gestational sac is present with a pole with a crown-rump length of 1.55cm correlating to gestational age of 8weeks. heart tones are present with an FHR of 154bpm. Yolk sac is noted. The uterus is retroverted. IMPRESSION: Live IUP at 8 weeks. Estimated due date by Ultrasound is 11/10/2021 Dictated by: Henry Mitchell MD 03/31/2021 15:25 Henry Mitchell MD in OV 03/31/2021 15:25
== END ==
PROVIDERS: PCP Family Medicine; Visit Provider Nurse Practitioner Obstetrics & Gynecology
DX: Z34.90 Encounter for supervision of normal pregnancy, unspecified, unspecified trimester (principal)
CPT/HCPCS: 76801

== ENCOUNTER → 2021-05-24 14:44 | Outpatient (CLI) | payer MEDICAID, SELFPAY ==
[2021-05-24 15:16] LABS: Basophils # 0.1 K/mm3 (0-0.2); Basophils % 1.1 % (0.1-2.0); Eosinophils # 0.1 K/mm3 (0.0-0.4); Eosinophils % 0.9 % (0.1-12.0); Hematocrit 39.5 % (37.0-47.0); Lymphocytes # 2.4 K/mm3 (0.7-4.5); Lymphocytes % 19.6 % (10-50); Mean Corpuscular HGB Conc 32.9 g/dL (31.8-35.4); Mean Corpuscular Hemoglobin 30.4 pg (27.0-31.2); Mean Corpuscular Volume 92.4 fl (81-99); Mean Platelet Volume 8.2 fl (7.4-10.4); Monocytes # 0.6 K/mm3 (0.1-1.0); Monocytes % 5.4 % (1.7-9.3); Neutrophils # 8.8 K/mm3 (1.8-7.8); Platelet Count 350 K/mm3 (142-424); Red Blood Count 4.27 M/mm3 (4.20-5.40); Red Cell Distribution Width 13.6 % (11.5-17.5)
[2021-05-24 21:15] LABS: HCG,Quantitative 10921 mIU/ml (0-5.42)
[2021-05-26 08:13] LABS: HIV Screen 4th Generation wRfx Non Reactive (Non Reactive); HSV 2 IgG, Type Spec <0.91 index (0.00-0.90); Hepatitis B Surface Antigen Negative (Negative); Hepatitis C Antibody 0.1 s/co ratio (0.0-0.9); Rubella Antibodies, IgG 9.38 index (Immune >0.99)
[2021-05-26 10:12] LABS: Rapid Plasma Reagin Ab Titer Non Reactive (NonRea<1:1)
== END ==
PROVIDERS: Visit Provider Nurse Practitioner Obstetrics & Gynecology
DX: Z34.90 Encounter for supervision of normal pregnancy, unspecified, unspecified trimester (principal)
CPT/HCPCS: 36415; 84702; 85025; 86592; 86695; 86703; 86762; 86790; 86850; 87340; 87380; G0432

== ENCOUNTER → 2021-06-24 14:21 | Outpatient (CLI) | payer MEDICAID, SELFPAY ==
--- NOTE | 2021-06-24 14:21 | US_ITS ---
FINAL REPORT CLINICAL HISTORY: 20 weeks gestation FINDINGS: There is a single live intrauterine gestation. Presentation is cephalic. The cervix is closed and measures 2.7 cm. Placenta is posterior grade 1. movement is noted. Heart rate is detected at 139 bpm. Three-vessel cord with satisfactory umbilical cord insertion. Four-chamber heart is noted. brain and ventricles are unremarkable. Chest and diaphragm are unremarkable. ABDOMEN: Both kidneys are unremarkable. Stomach is unremarkable. SPINE: No anomalies identified. Both arms and legs noted. AMNIOTIC FLUID: Appropriate amount. MEASUREMENTS: ULTRASOUND AGE: 19 weeks 6 days. GESTATION AGE: 20 weeks 1 days. ESTIMATED WEIGHT: 325 g GROWTH PERCENTILE: 36% BPD: 4.56 cm consistent with 19 weeks 6 days. OFD: 5.67 cm consistent with 19 weeks 5 days. HC: 16.16 cm consistent with 19 weeks 0 days. AC: 14.86 cm consistent with 20 week 1 days. FL: 3.23 cm consistent with 20 week 1 days. CEREBELLUM: 2.01 cm consistent with 20 week 4 days. HUMERUS: 3.14 cm consistent with 20 week 4 days. HC/AC: 1.09 CI: 80% FL/BPD: 71% FL/AC: 22% IMPRESSION: Single living IUP with an ultrasound age of 19 weeks 6 days. Reviewed, Interpreted and Dictated by Manolo Fuentes III, MD Transcribed by Maegan Ortiz Authenticated by Manolo Fuentes III, MD on 06/24/2021 04:22:46 PM [facility]
== END ==
PROVIDERS: PCP Family Medicine; Visit Provider Nurse Practitioner Obstetrics & Gynecology
DX: Z3A.20 20 weeks gestation of pregnancy (principal); Z34.90 Encounter for supervision of normal pregnancy, unspecified, unspecified trimester
CPT/HCPCS: 76811

== ENCOUNTER → 2021-10-14 13:37 | Outpatient (CLI) | payer MEDICAID, SELFPAY ==
--- NOTE | 2021-10-14 13:37 | US_ITS ---
FINAL REPORT CLINICAL HISTORY: US OB BPP/Growth with SD RATIO-SGA FINDINGS: There is a single live intrauterine gestation. Presentation is cephalic. Placenta is posterior, high, grade 2. The cervix measures 4.16 cm. Heart rate is 140 beats per minute. A three-vessel cord is noted. AMNIOTIC FLUID: Appropriate amount. ZE: 7.03 cm MEASUREMENTS: ULTRASOUND AGE: 35 weeks 4 days. GESTATION AGE: 36 weeks 1 days. ESTIMATED WEIGHT: 2703 g GROWTH PERCENTILE: 35% BPD: 8.8 cm corresponding with 35 weeks 5 days. OFD: 11 cm corresponding with 35 weeks 5 days. HC: 31.4 cm corresponding with 35 weeks 2 days. AC: 31.7 cm corresponding with 35 weeks 5 days. FL: 6.9 cm corresponding with 35 weeks 4 days. HC/AC: 0.99 CI: 80% FL/BPD: 78% FL/AC: 22% Biophysical profile: BREATHIN/2 MOVEMENT: 2/2 TONE: 2/2 FLUID VOLUME: 2/2 TOTAL: 12/26 IMPRESSION: Single living IUP with an ultrasound age of 35 weeks 4 days. ZE of 7.03 cm BPP: 12/26 Reviewed, Interpreted and Dictated by Doreen Vinson MD Transcribed by Johanna Cedeño Authenticated by Doreen Vinson MD on 10/14/2021 04:14:[address] [facility]
== END ==
PROVIDERS: PCP Internal Medicine Adolescent Medicine; Visit Provider Nurse Practitioner Obstetrics & Gynecology
DX: O36.5990 Maternal care for other known or suspected poor fetal growth, unspecified trimester, not applicable or unspecified (principal)
CPT/HCPCS: 76816; 76819; 76820

== ENCOUNTER → 2021-10-21 09:00 | Outpatient (CLI) | payer MEDICAID, SELFPAY | PROVIDERS: Visit Provider Nurse Practitioner Obstetrics & Gynecology | DX: Z34.90 Encounter for supervision of normal pregnancy, unspecified, unspecified trimester (principal); Z3A.37 37 weeks gestation of pregnancy | CPT/HCPCS: 86403 ==

== ENCOUNTER 2021-10-21 20:23 | Outpatient (CLI) | payer MEDICAID, SELFPAY ==
[2021-10-21 20:32] VITALS: BMI 25.4
[2021-10-21 20:40] LABS: Microscopic, Urine URINE MICROSCOPIC (MICROSCOPIC)
[2021-10-21 20:44] LABS: Appearance,Urine SL CLOUDY (Clear); Bilirubin,Urine Negative (Negative); Blood, Urine Negative (Negative); Color,Urine YELLOW (Yellow); Glucose,Urine (UA) Negative (Negative); Ketones,Urine TRACE (Negative); Leukocyte Esterase,Urine 1+ (Negative); Nitrate,Urine Negative (Negative); PH,Urine 7.5 (5.0-8.5); Protein,Urine Negative (Negative); Urobilinogen,Urine 0.2 EU/dl (0.2)
[2021-10-21 20:48] LABS: Bacteria,Urine Trace /lpf; Squamous Epithelial Cell,Urine 20-50 #/hpf (0-5)
[2021-10-21 20:55] LABS: Amphetamine/Metha Screen,Urine Negative ng/ml (<1000); Barbiturates Screen,Urine Negative ng/ml (<200)
[2021-10-21 20:56] LABS: Benzodiazepines Screen,Urine Negative ng/ml (<200); Cannabinoid Screen,Urine Negative ng/ml (<50)
[2021-10-21 20:57] LABS: Cocaine Screen,Urine Negative ng/ml (<300)
[2021-10-21 20:58] LABS: Methadone Screen,Urine Negative ng/ml (<300); Phencyclidine Screen,Urine Negative ng/ml (<25)
[2021-10-21 20:59] LABS: Opiate Screen,Urine Negative ng/ml (<300)
[2021-10-21 21:28] VITALS: BP 101/65; PULSE 118; RESP 18; TEMP 37.1; O2SAT 100; BMI 25.4
== END 2021-10-21 22:50 | disposition home or self-care (01) ==
LOC: OBOUT 20:26 → OB 20:27
PROVIDERS: PCP Nurse Practitioner Obstetrics & Gynecology; Visit Provider Obstetrics & Gynecology
DX: O26.893 Other specified pregnancy related conditions, third trimester (principal); Z3A.37 37 weeks gestation of pregnancy; M54.50 Low back pain, unspecified
CPT/HCPCS: 59025; 80305; 81001; 87086; 96365; G0463

== ENCOUNTER 2021-10-30 14:23 | Inpatient (IN) | payer MEDICAID, SELFPAY ==
[2021-10-30 13:26] VITALS: BMI 25.4
[2021-10-30 13:31] VITALS: BMI 40.6
[2021-10-30 13:35] LABS: Microscopic, Urine URINE MICROSCOPIC (MICROSCOPIC)
[2021-10-30 13:42] LABS: Appearance,Urine CLEAR (Clear); Bilirubin,Urine Negative (Negative); Blood, Urine Negative (Negative); Color,Urine DK YELLOW (Yellow); Glucose,Urine (UA) Negative (Negative); Ketones,Urine Negative (Negative); Leukocyte Esterase,Urine Negative (Negative); Nitrate,Urine Negative (Negative); Protein,Urine Negative (Negative); Specific Gravity, Urine >= 1.030 (1.005-1.030); Urobilinogen,Urine 0.2 EU/dl (0.2)
[2021-10-30 13:51] LABS: Fetal Membrane Rupture (Rapid) Positive (Negative)
[2021-10-30 13:55] LABS: Amphetamine/Metha Screen,Urine Negative ng/ml (<1000); Bacteria,Urine Trace /lpf; Benzodiazepines Screen,Urine Negative ng/ml (<200); Mucus,Urine 2+ /lpf; RBC,Urine Occasional #/hpf (0-3)
[2021-10-30 13:56] LABS: Barbiturates Screen,Urine Negative ng/ml (<200)
[2021-10-30 13:57] LABS: Cannabinoid Screen,Urine Negative ng/ml (<50); Cocaine Screen,Urine Negative ng/ml (<300)
[2021-10-30 13:58] LABS: Methadone Screen,Urine Negative ng/ml (<300); Opiate Screen,Urine Negative ng/ml (<300)
[2021-10-30 13:59] LABS: Phencyclidine Screen,Urine Negative ng/ml (<25)
[2021-10-30 14:25] LABS: Influenza A, PCR Not Detected (NotDetected); Influenza B, PCR Not Detected (NotDetected)
[2021-10-30 14:35] LABS: Basophils # 0.1 K/mm3 (0-0.2); Basophils % 0.6 % (0.1-2.0); Eosinophils # 0.1 K/mm3 (0.0-0.4); Hematocrit 35.9 % (37.0-47.0); Hemoglobin 11.9 g/dL (12.2-16.2); Lymphocytes # 2.6 K/mm3 (0.7-4.5); Lymphocytes % 19.3 % (10-50); Mean Corpuscular HGB Conc 33.2 g/dL (31.8-35.4); Mean Corpuscular Hemoglobin 29.9 pg (27.0-31.2); Mean Corpuscular Volume 90.1 fl (81-99); Mean Platelet Volume 9.2 fl (7.4-10.4); Monocytes # 0.9 K/mm3 (0.1-1.0); Monocytes % 7.1 % (1.7-9.3); Neutrophils # 9.5 K/mm3 (1.8-7.8); Platelet Count 378 K/mm3 (142-424); Red Blood Count 3.98 M/mm3 (4.20-5.40); Red Cell Distribution Width 13.2 % (11.5-17.5); White Blood Count 13.2 K/mm3 (4.8-10.8)
[2021-10-30 14:46] LABS: Chloride 106 mmol/L (98-107); Potassium 3.7 mmoL/L (3.5-5.1); Sodium 133 mmol/L (136-145)
[2021-10-30 14:48] LABS: Alanine Aminotransferase 19 U/L (12-78); Aspartate Amino Transferase 28 U/L (14-36); Blood Urea Nitrogen 5 mg/dl (7-17); Creatinine Clearance Estimated 404 mL/min (50-200); Estimated Glomerular Filt Rate 191 ml/min (>60); GFR (African American) 232 ML/MIN (>60)
[2021-10-30 14:49] LABS: Albumin Level 3.3 g/dl (3.5-5.0); Alkaline Phosphatase 178 U/L (38-126); Anion Gap 10.7 mEq/L (5-15); Bilirubin,Total 0.3 mg/dl (0.2-1.3); Calcium 8.6 mg/dl (8.4-10.2); Carbon Dioxide 20 mmol/L (22.0-30.0); Globulin 3.2 g/dL (1.3-3.2); Glucose 103 mg/dl (74-100); Total Protein,Serum 6.5 g/dl (6.3-8.2)
[2021-10-30 15:04] LABS: Coronavirus 19, PCR Detected (NotDetected)
--- NOTE | 2021-10-30 15:31 | PC.NURSE ---
Dr Almazan paged
--- NOTE | 2021-10-30 15:40 | PC.NURSE ---
Addendum entered by Tabatha Barron RN 10/30/21 16:55: [id number] Tha MD unable to assist with . Dr Ball notified. Original Note: no answer from initial page, Dr Almazan re-paged at [phone]
[2021-10-30 17:10] VITALS: BP 109/52; PULSE 50; RESP 16; TEMP 36.4; O2SAT 97
--- NOTE | 2021-10-30 17:13 | HMH.HP ---
*Admission Date: 10/30/21 *Chief complaint: Spontaneous rupture of membranes at term; scheduled for primary *History of present illness: This 26-year-old 2, para 1, Ab0 white female had an uneventful course. Her history is significant because with her previous vaginal delivery she had a significant fourth degree laceration requiring extensive repair. Because of that she had agreed with her primary edge stripper Dr. Augustin to undergo a primary at term, for which she was scheduled next week. Today however she ruptured membranes spontaneously at home and arrived in the labor room 4 cm dilated, with irregular contractions and an obvious spontaneous rupture of membranes. Her rapid COVID test was positive. The plan is to proceed with her primary , as had been scheduled. [facility] History Medical History: Reports:: Atrial Fibrillation, Cancer, Cardiomyopathy, Urinary Tract Infection Denies:: Diabetes Mellitus Type 1, Diabetes Mellitus Type 2, Hypertension, MRSA *Have you ever received a pneumonia vaccine?: No *Have you received a flu vaccine this season?: Yes Other Surgeries: Yes: Other. No: Amputation: No Fractures: No - *Social History Smoking Status: Current every day smoker Tobacco Type: cigarettes # Packs/Day (cigarettes): 1 Alcohol Intake: never Alcohol Intake Frequency:: other Substance Use Type: marijuana *Occupational Status:: other Housing: house *Travel in the last 8 weeks: None Family Hx:: Diabetes, Hypertension Para: 1 Meds Home Medications Medication Instructions Recorded Confirmed Type buspirone 10 mg tablet 10 mg PO BID #30 tab 08/05/21 10/27/21 Rx loratadine 10 mg tablet 10 mg PO tab 08/29/21 10/27/21 History ondansetron HCl 4 mg tablet 4 mg PO tab 08/29/21 10/27/21 History Allergies Allergy/AdvReac Type Severity Reaction Status Date / Time Penicillins [PENICILLINS] Allergy Unknown Verified 10/27/21 11:08 Sulfa (Sulfonamide Allergy Unknown Verified 10/27/21 11:08 Antibiotics) [SULFA (SULFONAMIDE ANTIBIOTICS)] adhesive tape Allergy Rash Verified 10/27/21 11:08 Exam Vital signs and Labs for Last 24 Hours: Laboratory Results - last 24 hr 10/30/21 13:14: Urine Color Dk yellow, Urine Appearance Clear, Urine pH 6.0, Ur Specific [place] >= 1.030, Urine Protein Negative, Urine Glucose (UA) Negative, Urine Ketones Negative, Urine Blood Negative, Urine Nitrate Negative, Urine Bilirubin Negative, Urine Urobilinogen 0.2, Ur Leukocyte Esterase Negative, Urine RBC Occasional, Urine WBC 5-10, Ur Squamous Epith Cells 10-20, Urine Bacteria Trace, Urine Mucus 2+ 10/30/21 13:14: Urine Opiates Screen Negative, Urine Methadone Screen Negative, Ur Barbituates Screen Negative, Ur Phencyclidine Scrn Negative, Ur Amphetamines Screen Negative, U Benzodiazepines Scrn Negative, Urine Cocaine Screen Negative, U Marijuana (THC) Screen Negative 10/30/21 13:36: Membrane Rupture Positive A 10/30/21 14:15: WBC 13.2 H, RBC 3.98 L, Hgb 11.9 L, Hct 35.9 L, MCV 90.1, MCH 29.9, MCHC 33.2, RDW 13.2, Plt Count 378, MPV 9.2, Neut % (Auto) 72.0, Lymph % (Auto) 19.3, Trinity % (Auto) 7.1, Eos % (Auto) 1.0, Baso % (Auto) 0.6, Neut # (Auto) 9.5 H, Lymph # (Auto) 2.6, Trinity # (Auto) 0.9, Eos # (Auto) 0.1, Baso # (Auto) 0.1 10/30/21 14:15: Sodium 133 L, Potassium 3.7, Chloride 106, Carbon Dioxide 20 L, Anion Gap 10.7, BUN 5 L, Creatinine 0.40 L, Estimated Creat Clear 404 H, Estimated GFR 191, Est GFR ( Amer) 232, Glucose 103 H, Calcium 8.6, Total Bilirubin 0.3, AST 28, ALT 19, Alkaline Phosphatase 178 H, Total Protein 6.5, Albumin 3.3 L, Globulin 3.2, Albumin/Globulin Ratio 1.0 L 10/30/21 14:15: Blood Type A Positive, Antibody Screen Negative 10/30/21 14:15: SARS-CoV-2 (PCR) Detected A, Influenza A Untype (PCR) Not detected, Influenza Type B (PCR) Not detected I & O for Last 24 hours: Intake & Output 10/28/21 10/29/21 10/30/21 10/31/21 11:59 11:59 11:59 11:59 Weight 267 lb
[2021-10-30 17:20] VITALS: BP 107/68; PULSE 52; RESP 18; O2SAT 99
--- NOTE | 2021-10-30 17:20 | HMH.OPNOTE ---
Date of procedure: 10/30/21 Pre-op Diagnosis:: #1 term intrauterine . #2 spontaneous rupture of membranes at 38-4/7 weeks. #3 history of traumatic vaginal delivery. #4 patient had been scheduled for primary section in the following week. #5 positive rapid COVID test. Post-op Diagnosis:: Same; 8/8, 6 pound 8 ounce, 19 inch female infant, born at 1638. Procedure performed:: Primary low transverse cervical section. Surgeon:: Eloy Ball MD Purchasing Manager/Sales(s):: Aleena Douglas RN INTERNET SALES ASSOCIATE:: Willis Martinez Anesthesia: spinal Estimated blood loss (mL): 400 Operative findings:: Normal pelvis Operative note:: After the patient was prepped and draped in the usual fashion and spinal anesthesia was administered, with appropriate care being taken because of her positive COVID status, a low Pfannenstiel incision was made across the midline, and the fat and fascia were in the usual fashion, bleeders being clamped and coagulated along the way. The peritoneum was entered with Metzenbaum scissors and extended above and below. The bladder peritoneum was sharply and bluntly dissected from the area of incision, and the bladder was protected with a bladder blade. The uterus was entered in a low transverse fashion with a knife, and the incision was extended bluntly, bilaterally. The amniotic sac was ruptured for clear fluid. The baby was found to be in the direct OP position of the vertex and, with appropriate fundal pressure, the head was easily delivered. There was no nuchal cord. The baby's nasal and oropharynx were bulb suctioned, and the baby cried spontaneously on the abdomen, as was delivered. Cord was clamped and cut, 3 vessels were noted to be within the cord, and cord blood was obtained. The baby was handed into the arms of the attending cement mason, Dr. Guadarrama, who assigned Apgars of 8 at 1 minute and 8 at 5 minutes to this 6 pound 8 ounce, 19 inch female , born at 1638. The baby was taken to the nursery and excellent condition. The placenta was delivered manually, intact. A ring forceps was used to assure adequate drainage through the cervix, and was then passed off the field, as a nonsterile instrument. The uterus was closed in 2 layers, the first a running locked suture of #1 Vicryl as an endometrial layer, followed by a running unlocked suture of #1 Vicryl as a myometrial layer, imbricating over the first. The bladder peritoneum was closed with a running unlocked suture of 2-0 Vicryl. Blood and clots were then swept from the gutters, and the tubes and ovaries were inspected and found to be normal. The peritoneum was grasped with 3 Kathleen clamps, and closed with a running semilocked suture of 0 Vicryl. The muscle was approximated with a running unlocked suture of 0 Vicryl. The fascia was closed with a running locked suture of #1 Vicryl. The subcutaneous fat and Staci's fascia were closed with a running unlocked suture of 2-0 Vicryl. The skin was closed with skin neto. The wound was appropriately dressed. The sponge and needle count was correct. The estimated blood loss was 400 cc. A pelvic examination at the close of the procedure expressed blood and clots from the involuting uterus, with IV Pitocin running. A TAP block was then administered by HEIDI Martinez. The patient tolerated the procedure well, and was to be taken to PACU for routine postop care. The patient's blood type is A+. Her rubella titer is immune. She plans to breast-feed..........(Prior to being taken to PACU, it was noticed that the wound was oozing from the right corner. After the dressing was removed, a [id number] suture was placed across that corner, resulting in hemostasis.) Condition: stable Disposition: PACU Specimens:: None Complications:: None
--- NOTE | 2021-10-30 17:23 | HMH.ANESCL ---
[facility] Anesthesia Checklist - Patient Identification Patient Identification: Arm Band - Structural Data Admitted From: Inpatient Planned Operative Procedure/s: Primary C/S Consent for Planned Operative Procedure(s) Verified: Yes Verified Documents: Surgical Consent, History and Physical - NPO Status Verified Time NPO: 10:00 (light breakfast) - Additional verifications Anesthesia Reactions: No - Airway Assessment C-Spine Mobility Assessed: Yes (mp2) TMJ Mobility Assessed: Yes Dentition: Good Dentition - Neurological Assessment Level of Consciousness: Awake, Alert - Anesthesia Plan Anesthesia Risk discussed: Yes Anesthesia Plan: Verified ASA Class: II Anesthesia Type: Spinal (with Bilateral TAP block) [facility] History I have reviewed the patient's past medical history: Yes Medical History: Reports:: Atrial Fibrillation, Cancer, Cardiomyopathy, Urinary Tract Infection Denies:: Diabetes Mellitus Type 1, Diabetes Mellitus Type 2, Hypertension, MRSA *Have you ever received a pneumonia vaccine?: No *Have you received a flu vaccine this season?: Yes Anesthesia experience/problems:: nac Other Surgeries: Yes: Other. No: Amputation: No Fractures: No - *Social History Smoking Status: Current every day smoker Tobacco Type: cigarettes # Packs/Day (cigarettes): 1 Alcohol Intake: never Alcohol Intake Frequency:: other Substance Use Type: marijuana *Occupational Status:: other Housing: house *Travel in the last 8 weeks: None Family Hx:: Diabetes, Hypertension Para: 1
[2021-10-30 17:25] VITALS: BP 109/52; PULSE 50; RESP 16; TEMP 36.4; O2SAT 97
--- NOTE | 2021-10-30 17:25 | P.PN_ITS ---
[facility] Anesthesia Record Part I Intake, IV Amount: 2,000 Estimated blood loss (mL): 400 Urine output (mL): 100 Blood Pressure: 109/52 SaO2: 97 Pulse Rate: 50 Respiratory Rate: 16 Temperature: 97.5 F Patient is:: Awake, Stable Stable to PACU at:: 17:10
[2021-10-30 17:30] VITALS: BP 116/64; PULSE 52; RESP 16; O2SAT 100
[2021-10-30 17:40] VITALS: BP 117/68; PULSE 50; RESP 16; TEMP 36.4; O2SAT 100
--- NOTE | 2021-10-30 23:31 | PC.NURSE ---
spoke to Lala with night watch about availability of 900mg clindamycin in 100ml ns. Available is 900mg of clindamycin in 5% dextrose. this was confirmed by night watch. will be changed by Lala in the JUL.
--- NOTE | 2021-10-31 07:12 | P.PN_ITS ---
[facility] Anesthesia Record Part II Discharge Time: 17:40 Destination: Medical Surgical Department PACU nurse assessment reviewed?: Yes Patient Condition:: Good Anesthesia Complications:: None Swallowing reflex intact?: Yes Cyanosis?: No Blood Pressure: 117/68 Pulse Rate: 50 Temperature: 97.6 F Mental Status: Alert & Oriented Pain level:: 0 Nausea and/or vomitting:: None Intake, IV Amount: 0
[2021-10-31 07:13] VITALS: BP 117/68; PULSE 50; TEMP 36.4
[2021-10-31 07:23] LABS: Hematocrit 30.7 % (37.0-47.0)
--- NOTE | 2021-10-31 07:25 | HMH.PHAINT ---
MEDICATION RECONCILIATION COMPLETED ON PATIENT USING EXTERNAL FILL HISTORY FROM PHARMACY. -CLIVE HARRELL, [place]
[2021-10-31 07:29] LABS: Hemoglobin 10.3 g/dL (12.2-16.2)
--- NOTE | 2021-10-31 09:22 | P.PN_ITS ---
Internal Medicine - PN: Subj *Date: 10/31/21 *Time: 09:22 Interval history: She is doing well this morning she is eating and drinking and ambulating. She had her T AP block. Her pain is reasonably well controlled. Her lochia is normal. She is breast-feeding. Exam Vital signs and Labs for Last 24 Hours: Temp Pulse Resp BP Pulse Ox 97.6 F 50 L 16 117/68 100 10/31/21 07:13 10/31/21 07:13 10/30/21 17:40 10/31/21 07:13 10/30/21 17:40 Laboratory Results - last 24 hr 10/30/21 13:14: Urine Color Dk yellow, Urine Appearance Clear, Urine pH 6.0, Ur Specific [place] >= 1.030, Urine Protein Negative, Urine Glucose (UA) Negative, Urine Ketones Negative, Urine Blood Negative, Urine Nitrate Negative, Urine Bilirubin Negative, Urine Urobilinogen 0.2, Ur Leukocyte Esterase Negative, Urine RBC Occasional, Urine WBC 5-10, Ur Squamous Epith Cells 10-20, Urine Bacteria Trace, Urine Mucus 2+ 10/30/21 13:14: Urine Opiates Screen Negative, Urine Methadone Screen Negative, Ur Barbituates Screen Negative, Ur Phencyclidine Scrn Negative, Ur Amphetamines Screen Negative, U Benzodiazepines Scrn Negative, Urine Cocaine Screen Negative, U Marijuana (THC) Screen Negative 10/30/21 13:36: Membrane Rupture Positive A 10/30/21 14:15: WBC 13.2 H, RBC 3.98 L, Hgb 11.9 L, Hct 35.9 L, MCV 90.1, MCH 29.9, MCHC 33.2, RDW 13.2, Plt Count 378, MPV 9.2, Neut % (Auto) 72.0, Lymph % (Auto) 19.3, [place] % (Auto) 7.1, Eos % (Auto) 1.0, Baso % (Auto) 0.6, Neut # (Auto) 9.5 H, Lymph # (Auto) 2.6, [place] # (Auto) 0.9, Eos # (Auto) 0.1, Baso # (Auto) 0.1 10/30/21 14:15: Sodium 133 L, Potassium 3.7, Chloride 106, Carbon Dioxide 20 L, Anion Gap 10.7, BUN 5 L, Creatinine 0.40 L, Estimated Creat Clear 404 H, Estimated GFR 191, Est GFR ( Amer) 232, Glucose 103 H, Calcium 8.6, Total Bilirubin 0.3, AST 28, ALT 19, Alkaline Phosphatase 178 H, Total Protein 6.5, Albumin 3.3 L, Globulin 3.2, Albumin/Globulin Ratio 1.0 L 10/30/21 14:15: Blood Type A Positive, Antibody Screen Negative 10/30/21 14:15: SARS-CoV-2 (PCR) Detected A, Influenza A Untype (PCR) Not detected, Influenza Type B (PCR) Not detected 10/31/21 06:55: Hgb 10.3 L D, Hct 30.7 L I & O for Last 24 hours: Intake & Output 10/28/21 10/29/21 10/30/21 10/31/21 11:59 11:59 11:59 11:59 Intake Total 1999 / 1999 Output Total 1500 / 1500 Balance 500 / 500 Weight 267 lb - Constitutional no acute distress - *Routine HEENT Exam Head: Present: normocephalic Eye: Present: EOMI, PERRL ENT: Present: mucous membranes moist Assessment and Plan (1) Premature rupture of membranes (PROM) affecting second Status: Acute Category: Medical Code(s): O42.90 - Premature rupture of membranes, unspecified as to length of time between rupture and onset of labor, unspecified weeks of gestation (2) Routine culture positive for herpes simplex virus type 2 Status: Acute Category: Medical Code(s): B00.9 - Herpesviral infection, unspecified (3) Delivery by section of full-term Status: Acute Category: Medical Code(s): O82 - Encounter for delivery without indication - Assessment and plan all Dx Assessment and Plan for all problems:: She is doing well today. We will plan to send her home tomorrow.
[2021-10-31 09:30] VITALS: BP 107/66; PULSE 57; RESP 16; TEMP 36.6; O2SAT 98
[2021-10-31 12:25] VITALS: BP 98/55; PULSE 51; RESP 17; TEMP 36.7; O2SAT 97
[2021-10-31 14:17] LABS: Microscopic,Cath URINE MICROSCOPIC (MICROSCOPIC)
[2021-10-31 14:29] LABS: Appearance,Urine/Cath CLEAR (Clear); Bilirubin,Cath Negative (Negative); Blood, Urine/Cath Negative (Negative); Color,Urine/Cath YELLOW (Yellow); Glucose,Urine/Cath (UA) Negative (Negative); Ketones,Urine/Cath Negative (Negative); Leukocyte Esterase,Cath Negative (Negative); Nitrate,Cath Negative (Negative); Protein,Urine/Cath Negative (Negative); Specific Gravity, Urine/Cath >= 1.030 (1.005-1.030); Urobilinogen,Cath 0.2 EU/dl (0.2)
[2021-10-31 14:47] LABS: Bacteria,Urine/Cath TRACE /lpf; Mucus,Urine/Cath 1+ /lpf; Squamous Epithelial Ur./Cath Occasional #/hpf (0-5); WBC,Urine/Cath Occasional #/hpf (0-3)
[2021-10-31 14:48] LABS: CA Oxalate Crystals,Ur/Cath 2+ /lpf
[2021-10-31 16:45] VITALS: BP 99/59; PULSE 60; RESP 16; TEMP 36.8; O2SAT 98
[2021-10-31 20:30] VITALS: BP 102/64; PULSE 60; RESP 17; TEMP 36.9; O2SAT 99
[2021-11-01 09:00] VITALS: BP 105/69; PULSE 64; RESP 16; TEMP 36.9; O2SAT 98
--- NOTE | 2021-11-01 09:55 | HMH.OBDCSM ---
General - General Admission date:: 10/30/21 Discharge date: 11/01/21 HPI - History of Present Illness History of present illness: She is a 26-year-old 2 para 1 who came in with ruptured membranes. She had 4th degree tear at the time of her last delivery and requested a section. She was scheduled for 5 days from now. Hospital Course Hospital Course: On October 30, 2021 she underwent a primary lower segment transverse section. She delivered a liveborn female child at 4:34 PM. The baby had Apgars of 8 at 1 minute and 8 at 5 minutes. She weighed 6 pounds 8 ounces. At the time of admission she had a COVID test and it was found to be positive. She had been having some symptoms the week prior to her delivery. She has done well and has remained afebrile throughout her hospitalization. She is eating and drinking and ambulating. She is breast-feeding. Her lochia is normal. She has a positive blood, she is rubella immune and was group B streptococcus negative. She is discharged home to follow-up with me in approximately 2 weeks time. She will continue with her vitamins and iron. She was given a prescription for Percocet 5/325 number 20 tablets as well as Motrin 400 number 40 tablets. She was given the usual instructions with respect to limiting her activity, driving and sexual activity. She was given instructions with respect to wound care. Her condition on discharge is stable and improved. Rhogam Administration: Not Indicated Objective Vital signs: Temp Pulse Resp BP Pulse Ox 98.4 F 60 17 102/64 L 99 10/31/21 20:30 10/31/21 20:30 10/31/21 20:30 10/31/21 20:30 10/31/21 20:30 no acute distress - *Routine HEENT Exam Head: Present: normocephalic Eye: Present: EOMI, PERRL ENT: Present: mucous membranes moist Results Labs on day of discharge: Labs from last 24 hours 10/30/21 14:15 Urine Color Yellow Urine Appearance Clear Urine pH 6.0 Ur Specific [place] >= 1.030 Urine Protein Negative Urine Glucose (UA) Negative Urine Ketones Negative Urine Blood Negative Urine Nitrate Negative Urine Bilirubin Negative Urine Urobilinogen 0.2 Ur Leukocyte Esterase Negative Urine RBC None Urine WBC Occasional Ur Squamous Epith Cells Occasional Calcium Oxalate Crystal 2+ Urine Bacteria Trace DS: Diagnosis - Discharge Diagnosis (1) Premature rupture of membranes (PROM) affecting second Status: Acute (2) Routine culture positive for herpes simplex virus type 2 Status: Acute (3) Delivery by section of full-term infant Status: Acute (4) COVID-19 affecting , antepartum Status: Acute Discharge Plan - Patient Discharge Instructions ACTIVITY: No heavy lifting DIET: continue same diet Additional Instructions: No heavy lifting/strenuous activity No driving for 2 weeks or while taking prescription narcotics Nothing in the vagina for 6 weeks Follow up with MD as scheduled Patient Instructions: Depression, Hemorrhage, DI for , DI for Pre-eclampsia, Surgical Site Infection, [facility] Post Discharge Instructions, Preventing the Spread of Coronavirus Discharge Instructions - Follow up Plan Follow up with: Mariusz Augustin MD [Staff Physician] - Disposition: Home, Self-Care Condition at discharge:: Stable Home Medications: Home Medications Medication Instructions Recorded Confirmed Type loratadine 10 mg tablet 10 mg PO DAILY tab 08/29/21 10/31/21 History Buspirone HCl [Buspar 10mg 10 mg PO BID 10/31/21 10/31/21 History tablet] Ibuprofen [Motrin 400mg 400 mg PO Q4HP PRN #40 tab 11/01/21 Rx tablet] Oxycodone HCl/Acetaminophen 1 tab PO Q4-6H PRN #20 tablet 11/01/21 Rx [Percocet 5/325mg tablet] Prescriptions/Medication Reconciliation: New Oxycodone HCl/Acetaminophen [Percocet 5/325mg tablet] 1 tab PO Q4-6H PRN #20
--- NOTE | 2021-11-01 11:39 | SW/DCPLANNER ---
Addendum entered by Jennifer [place] 11/02/21 11:12: Infant cord screen is negative. Addendum entered by [facility] 11/01/21 14:10: This case did not meet criteria for further investigation by Central Intake. Original Note: I received a referral for this patient regarding: THC use in early . Patient urine drug screen was positive on: 05/11/21, 06/09/21, 07/07/21 and 08/05/21. Patient stated that she knew she was while using THC but it did help with anxiety. Patient did have eight urine drug screens after the last known positive date and all were negative. 's urine drug screen was also negative. Infant female (Kathryn Barroso) was born on 10/30/2021. 's father (Kamran Barroso 03/03/1989) is involved but was not present during my interview with this patient. Patient will reside at [address] [place] [address] in [place] with her mother (Payton Espino), infant and her other child (Jeramie Barroso 10/11/2020). Patient stated that she has been involved with Social Service in past with Jeramie: Kamran contacted [place] [employer] for assistance installing carseat on 04/05/2021 and this resulted in Fire [employer] contacting [place] [employer] due to history of drug use and Kamran did have a warrant for his arrest. Kamran was arrested and CPS did open an investigation. Per patient investigation is now closed due to Kamran being incarcerated. Patient is established with [facility] and stated she does have the following items at home: carseat, clothing, diapers, crib and will be breast feeding. Patient's nurse (Mary Olivo) stated that patient is appropriate with . Patient and will discharge home today. I have reported this case to Central Intake: ID [id number]. I will follow up with Central Intake once case is reviewed.
== END 2021-11-01 12:10 | disposition home or self-care (01) | DRG 786 ==
LOC: OBOUT 14:25 → OB 14:25
PROVIDERS: Admitting Provider Obstetrics & Gynecology; PCP Family Medicine; Referring Provider Nurse Practitioner Obstetrics & Gynecology; Visit Provider Nurse Practitioner Obstetrics & Gynecology
PROC: (CPT 59514; principal; 2021-10-30 16:00)
DX: O42.02 Full-term premature rupture of membranes, onset of labor within 24 hours of rupture (principal); U07.1 COVID-19; O98.513 Other viral diseases complicating pregnancy, third trimester; O98.313 Other infections with a predominantly sexual mode of transmission complicating pregnancy, third trimester; Z3A.38 38 weeks gestation of pregnancy; Z37.0 Single live birth; O99.513 Diseases of the respiratory system complicating pregnancy, third trimester; J98.8 Other specified respiratory disorders; A60.00 Herpesviral infection of urogenital system, unspecified
CPT/HCPCS: 59514; 59025; 80053; 80305; 81001; 84112; 85014; 85018; 85025; 86850; C9290; C9803; J2405; U0003; U0005

== ENCOUNTER 2022-03-25 08:47 | Emergency (ER) | payer MEDICAID, SELFPAY ==
[2022-03-25] VITALS (8 sets, daily range): BP systolic 94–133; BP diastolic 48–77; PULSE 48–59; RESP 16–20; TEMP 37.1; O2SAT 97–99; BMI 25.0
[2022-03-25 09:10] LABS: Microscopic, Urine URINE MICROSCOPIC (MICROSCOPIC)
[2022-03-25 09:15] LABS: Appearance,Urine TURBID (Clear); Blood, Urine TRACE-I (Negative); Color,Urine YELLOW (Yellow); Glucose,Urine (UA) Negative (Negative); Ketones,Urine 1+ (Negative); Leukocyte Esterase,Urine 1+ (Negative); Nitrate,Urine Negative (Negative); PH,Urine 5.5 (5.0-8.5); Protein,Urine TRACE (Negative); Specific Gravity, Urine >= 1.030 (1.005-1.030); Urobilinogen,Urine 0.2 EU/dl (0.2)
[2022-03-25 09:15] LABS: Basophils # 0.1 K/mm3 (0-0.2); Basophils % 0.5 % (0.1-2.0); Eosinophils # 0.2 K/mm3 (0.0-0.4); Eosinophils % 1.6 % (0.1-12.0); Hemoglobin 14.7 g/dL (12.2-16.2); Lymphocytes # 1.7 K/mm3 (0.7-4.5); Mean Corpuscular HGB Conc 31.2 g/dL (31.8-35.4); Mean Corpuscular Volume 86.5 fl (81-99); Mean Platelet Volume 8.3 fl (7.4-10.4); Monocytes # 0.7 K/mm3 (0.1-1.0); Neutrophils # 10.6 K/mm3 (1.8-7.8); Neutrophils % 79.7 % (37.0-80.0); Platelet Count 337 K/mm3 (142-424); Red Blood Count 5.44 M/mm3 (4.20-5.40); Red Cell Distribution Width 14.4 % (11.5-17.5); White Blood Count 13.3 K/mm3 (4.8-10.8)
--- NOTE | 2022-03-25 09:15 | HMH.EDGENADL ---
Discharge Plan Disposition Patient Disposition: Home, Self-Care Condition: Good Prescriptions Prescriptions: New ciprofloxacin HCl [Cipro] 500 mg tablet 500 mg PO BID Qty: 20 0RF ondansetron 4 mg tablet,disintegrating 4 mg PO Q8H PRN (Reason: nausea and vomiting) Qty: 10 0RF Referrals Follow up/Referrals: Curly Nunes MD [Primary Care Provider] - See instructions Activity Restrictions/Add. Instructions Additional Instructions/Restrictions: Cipro as prescribed for possible UTI. Aleve as needed for abdominal pain. Zofran as needed for nausea or vomiting. Collect a diarrhea sample using the provided supplies and return it along with the order form to ER registration at [facility] for testing. Obtain the results of this test from your primary care provider the next day. Additional instructions for ABDOMINAL PAIN: See your physician as soon as possible for further evaluation. Return immediately if worsening abdominal pain, vomiting, shortness of breath, fever, vomiting of blood or abdominal distention. Urine culture has been performed, results generally take 2 to 3 days. Follow-up the results of this test with your primary care provider within 2 to 3 days. Clinical Impressions Clinical Impression: Acute mesenteric adenitis, Gastroenteritis Stand Alone Forms Stand Alone Forms: Work/School Release Instructions Patient Instructions: DI for Viral Gastroenteritis -- Adult, DI for Acute Abdominal Pain, DI for Mesenteric Adenitis-Adult Discharge ED Provider: aMverick Bridges General Adult HPI General Chief complaint: Abdominal Pain Stated complaint: Lower back pain,Stomach pain, Diarrhea Time Seen by Provider: 03/25/22 09:07 Mode of Arrival: Ambulatory Source of Information: Patient Limitations: No Limitations Description of Symptoms (Recalled from ER Triage Doc. by RN): pt to ed c/o lower abd pain that radiates into her lower back. pt states she has had 2 episodes of diarrhea. pt denies vomiting. pt reports the pain first started sunday, but is more severe today. History of Present Illness HPI narrative: Patient states that on Sunday 5 days ago she had some abdominal pain and slight diarrhea, but that resolved. Symptoms came back night, 2 days ago. She has abdominal pain with severe paroxysms that radiate to her back. She has had some diarrhea. She thinks there might be blood in it. She says she only throws up when the pain is severe. Denies fever. Denies urinary symptoms. Last menstrual period was a month ago. She has had prior section, no other abdominal surgeries. No ill contacts or exposures. Related Data Previous Rx's Medication Instructions Recorded ciprofloxacin HCl 500 mg tablet 500 mg PO BID #20 tabs 03/25/22 (Cipro) ondansetron 4 mg disintegrating 4 mg PO Q8H PRN nausea and 03/25/22 tablet vomiting #10 tabs Allergies Allergy/AdvReac Type Severity Reaction Status Date / Time Penicillins [PENICILLINS] Allergy Unknown Verified 12/14/21 10:46 Sulfa (Sulfonamide Allergy Unknown Verified 12/14/21 10:46 Antibiotics) [SULFA (SULFONAMIDE ANTIBIOTICS)] adhesive tape Allergy Rash Verified 12/14/21 10:46 PFSH PFSH Social History Smoking Status: Never smoker alcohol intake: never substance use type: marijuana current occupational status: other Travel in the last 8 weeks: None housing: house ROS Obtained: Yes Systems reviewed as appropriate & no additional complaints except as documented Constitutional Constitutional: Denies fever(s), Denies headache(s) and Denies weakness ENT Ears, Nose, Mouth, and Throat: Denies headache(s), Denies nasal discharge and Denies sore throat Cardiovascular Cardiovascular: Denies chest pain Respiratory Respiratory: Denies shortness of breath and Denies cough Gastrointestinal Gastrointestingal: Reports abdominal pain, diarrhea and vomiting; Denies constipation Genitourinary Female Genitour
[2022-03-25 09:18] LABS: Alanine Aminotransferase 31 U/L (12-78); Albumin Level 4.5 g/dl (3.5-5.0); Albumin/Globulin Ratio 1.4 (1.1-1.8); Alkaline Phosphatase 174 U/L (38-126); Aspartate Amino Transferase 34 U/L (14-36); Bilirubin,Total 0.3 mg/dl (0.2-1.3); Blood Urea Nitrogen 6 mg/dl (7-17); Calcium 9.2 mg/dl (8.4-10.2); Carbon Dioxide 24 mmol/L (22.0-30.0); Chloride 104 mmol/L (98-107); Creatinine Clearance Estimated 151 mL/min (50-200); Estimated Glomerular Filt Rate 120 ml/min (>60); GFR (African American) 145 ML/MIN (>60); Globulin 3.2 g/dL (1.3-3.2); Glucose 103 mg/dl (74-100); Lipase 57 U/L (23-300); Sodium 140 mmol/L (136-145); Total Protein,Serum 7.7 g/dl (6.3-8.2)
[2022-03-25 09:20] LABS: Bilirubin,Urine 1+ (Negative)
[2022-03-25 09:30] LABS: Bacteria,Urine 4+ /lpf; Mucus,Urine 4+ /lpf; RBC,Urine Occasional #/hpf (0-3)
[2022-03-25 09:44] LABS: HCG Qualitative, Serum Negative (Negative)
--- NOTE | 2022-03-25 10:02 | PC.NURSE ---
PT MEDICATED PER EMAR, NO NEEDS AT THIS TIME
--- NOTE | 2022-03-25 10:14 | PC.NURSE ---
rounded on pt at this time. states her toradol helped her pain. no needs at this time.
--- NOTE | 2022-03-25 10:15 | CT_ITS ---
PROCEDURE INFORMATION: Exam: CT Abdomen And Pelvis With Contrast Exam date and time: 03/25/2022 10:46 AM Age: 26 years old Clinical indication: Abdominal tenderness and nausea; Patient HX: ; Additional info: Abdo pain TECHNIQUE: Imaging protocol: Computed tomography of the abdomen and pelvis with contrast. Radiation optimization: All CT scans at this facility use at least one of these dose optimization techniques: automated exposure control; mA and/or kV adjustment per patient size (includes targeted exams where dose is matched to clinical indication); or iterative reconstruction. Contrast material: ISOVUE; Contrast volume: 75 ml; Contrast route: IV; COMPARISON: CR KUB XR KUB 07/09/2017 3:13 PM FINDINGS: Liver: Normal. No mass. Gallbladder and bile ducts: Normal. No calcified stones. No ductal dilation. Pancreas: Normal. No ductal dilation. Spleen: Normal. No splenomegaly. Adrenal glands: Normal. No mass. Kidneys and ureters: No hydronephrosis. Punctate nonobstructing calculus lower pole left kidney. Stomach and bowel: Colonic diverticulosis. No evidence of diverticulitis. Appendix: No evidence of appendicitis. Intraperitoneal space: Unremarkable. No free air. No significant fluid collection. Vasculature: Unremarkable. No abdominal aortic aneurysm. Lymph nodes: Mildly enlarged ileocolic lymph nodes measuring up to 8 mm in maximum dimensions (series 3, image number 69). Additional mildly prominent mesenteric and retroperitoneal lymph nodes . Urinary bladder: Unremarkable as visualized. Reproductive: Unremarkable as visualized. Bones/joints: Unremarkable. No acute fracture. Soft tissues: Unremarkable. IMPRESSION: Findings compatible with mesenteric adenitis.
--- NOTE | 2022-03-25 10:47 | PC.NURSE ---
pt to radiology
--- NOTE | 2022-03-25 11:57 | PC.NURSE ---
DR. LEE AT BEDSIDE TO DISCUSS POC WITH PT AND FAMILY
== END 2022-03-25 12:24 | disposition home or self-care (01) ==
PROVIDERS: Emergency Provider Emergency Medicine; PCP Internal Medicine Adolescent Medicine
DX: K52.9 Noninfective gastroenteritis and colitis, unspecified (principal); I88.0 Nonspecific mesenteric lymphadenitis; Z88.0 Allergy status to penicillin; Z88.2 Allergy status to sulfonamides
CPT/HCPCS: 74177; 80053; 81001; 83690; 84703; 85025; 87086; 96365; 96375; 99284; J2405; Q9967

== ENCOUNTER 2022-07-29 16:36 | Emergency (ER) | payer OTHER, MEDICAID, SELFPAY ==
[2022-07-29 16:37] VITALS: BP 118/81; PULSE 60; RESP 16; TEMP 36.8; O2SAT 98; BMI 24.0
[2022-07-29 17:00] VITALS: BP 131/75; PULSE 65; RESP 16; O2SAT 100
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
[2022-07-29 17:48] LABS: Chloride 103 mmol/L (98-107); Potassium 3.9 mmoL/L (3.5-5.1); Sodium 138 mmol/L (136-145)
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
[2022-07-29 17:51] LABS: Anion Gap 10.9 mEq/L (5-15); Blood Urea Nitrogen 9 mg/dl (7-17); Calcium 8.5 mg/dl (8.4-10.2); Carbon Dioxide 28 mmol/L (22.0-30.0); Creatinine Clearance Estimated 140 mL/min (50-200); Estimated Glomerular Filt Rate 119 ml/min (>60); GFR (African American) 144 ML/MIN (>60); Glucose 94 mg/dl (74-100)
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
[2022-07-29 17:58] LABS: HCG Qualitative, Serum Negative (Negative)
[2022-07-29 18:00] VITALS: BP 106/62; PULSE 65; RESP 16; O2SAT 99
--- NOTE | 2022-07-29 18:04 | PC.NURSE ---
pt to ct
[2022-07-29 18:30] VITALS: BP 114/74; PULSE 62; RESP 16; O2SAT 100
[2022-07-29 19:00] VITALS: BP 108/67; PULSE 62; RESP 16; O2SAT 99
[2022-07-29 19:45] VITALS: BP 107/67; PULSE 60; RESP 16; TEMP 36.8; O2SAT 99
== END 2022-07-29 19:47 | disposition home or self-care (01) ==
PROVIDERS: Emergency Provider Emergency Medicine; PCP Internal Medicine Adolescent Medicine
DX: F07.81 Postconcussional syndrome (principal); V49.40XA Driver injured in collision with unspecified motor vehicles in traffic accident, initial encounter
CPT/HCPCS: 70450; 70496; 70498; 73080; 73090; 80048; 84703; 99284; 99285; Q9967

== ENCOUNTER 2023-01-29 11:21 | Emergency (ER) | payer MEDICAID, SELFPAY ==
[2023-01-29 11:45] VITALS: BP 120/81; PULSE 51; RESP 22; TEMP 36.7; O2SAT 98; BMI 22.9
--- NOTE | 2023-01-29 11:57 | EXP.UTC ---
Discharge Plan Disposition Patient Disposition: Home, Self-Care Prescriptions Prescriptions: No Action Nexplanon 68 mg implant 68 mg subdermal ONCE estradiol [Estrace] 2 mg tablet 2 mg PO DAILY escitalopram oxalate [Lexapro] 10 mg tablet 10 mg PO DAILY Referrals Follow up/Referrals: Curly Nunes MD [Primary Care Provider] - See instructions Activity Restrictions/Add. Instructions Additional Instructions/Restrictions: At this time it was felt you are safe to be discharged home. If new or worsening symptoms please do not hesitate to return the emergency department. If symptoms persist please follow-up with your family doctor as you are able. Clinical Impressions Clinical Impression: Headache Discharge ED Provider: Fredi Elkins [facility] HPI <Maryam Kirby APRN - Last Filed: 01/29/23 20:43> General Chief complaint: Headache Stated complaint: possible migraine, blurry vision, Lt arm/lip numb Mode of Arrival: Ambulatory Source of Information: Patient Limitations: No Limitations Time Seen by Provider: 01/29/23 11:57 Description of Symptoms (Recalled from Triage Doc. by RN): PATIENT C/O MIGRAINE WITH LOSS OF VISION, LEFT HAND NUMBNESS, MOUTH NUMBNESS, AND PAIN BEHIND EYES AND DOWN TO BASE OF NECK. SHE REPORTS SHE'S HAD SIMILAR MIGRAINES SINCE HIGH SCHOOL, BUT HAS NOT HAD ONE IN A WHILE HEENT Symptoms (Recalled from RN notes): Yes Resp Symptoms (Recalled from RN notes): No Skin Symptoms (Recalled from RN notes): No MS Symptoms (Recalled from RN notes): No Functional Status (Recalled from RN notes): WNL History of Present Illness Provider Complaint: Patient states that earlier today she was at work and she started having tingling like numb feeling in her lips and tongue, numbness and weakness that started in her left fingers and moved up hand into her arm, severe pain behind her eyes that would radiate to the back of her head and neck area and felt like someone shined a bright light into her eyes and when she would look at someone for a moment she was only able to see half of them then her other eye did the same thing and they looked pixelated States that her arm numbness has got better and her vision is better but still seems blurry but still having tingling and numbness in her lips and severe headache States that she had migraines with stroke like symptoms when she was in high school but this one came on different and she hasnt had one in a long time Related Data Home Medications Medication Instructions Recorded Confirmed etonogestrel 68 mg subdermal 68 mg subdermal ONCE Control 12/28/22 01/29/23 implant (Nexplanon) escitalopram oxalate 10 mg tablet 10 mg PO DAILY Depression 01/29/23 01/29/23 (Lexapro) estradiol 2 mg tablet (Estrace) 2 mg PO DAILY HELP WITH PERIODS 01/29/23 01/29/23 Allergies Allergy/AdvReac Type Severity Reaction Status Date / Time Penicillins [PENICILLINS] Allergy Unknown Verified 12/28/22 11:04 Sulfa (Sulfonamide Allergy Unknown Verified 12/28/22 11:04 Antibiotics) [SULFA (SULFONAMIDE ANTIBIOTICS)] adhesive tape Allergy Rash Verified 12/28/22 11:04 prochlorperazine Allergy Verified 01/29/23 13:09 [From Compazine] Worker's Comp Is this a Worker's Comp case?: No [facility] <Maryam Kirby, BILLY - Last Filed: 01/29/23 20:43> [facility] Disclaimer: The information contained in this section may have been updated after the patient was seen, as this information can be updated by other users. Medical History Depression Surgical History Hx of section Family History Other Cancer Diabetes Hyperlipidemia Hypertension Social History Smoking Status: Current every day smoker tobacco type: cigarettes packs per day: 1 alcohol
--- NOTE | 2023-01-29 12:03 | PC.NURSE ---
PATIENT SENT TO ER PER Prateek CLOUD APRN FOR FURTHER EVALUATION. REPORT GIVEN TO DR. FLAHERTY BY Prateek CLOUD APRN
[2023-01-29 12:11] VITALS: BP 114/79; PULSE 56; RESP 16; TEMP 36.7; O2SAT 100; BMI 21.6
--- NOTE | 2023-01-29 12:26 | PC.NURSE ---
Dr. Elkins at [facility] for pt eval
--- NOTE | 2023-01-29 12:36 | HMH.EDGENADL ---
Discharge Plan Disposition Patient Disposition: Home, Self-Care Prescriptions Prescriptions: No Action Nexplanon 68 mg implant 68 mg subdermal ONCE estradiol [Estrace] 2 mg tablet 2 mg PO DAILY escitalopram oxalate [Lexapro] 10 mg tablet 10 mg PO DAILY Referrals Follow up/Referrals: Curly Nunes MD [Primary Care Provider] - See instructions Activity Restrictions/Add. Instructions Additional Instructions/Restrictions: At this time it was felt you are safe to be discharged home. If new or worsening symptoms please do not hesitate to return the emergency department. If symptoms persist please follow-up with your family doctor as you are able. Clinical Impressions Clinical Impression: Headache Discharge ED Provider: Fredi Elkins General Adult HPI General Chief complaint: Headache Stated complaint: possible migraine, blurry vision, Lt arm/lip numb Time Seen by Provider: 01/29/23 11:57 Mode of Arrival: Ambulatory Source of Information: Patient Limitations: No Limitations Description of Symptoms (Recalled from ER Triage Doc. by RN): 27 yo F presents to ED from [facility] for possible stroke symptoms. pt reports she had headache this am, felt numbness and tingiling in her left arm. pt has had hx of migraines. pt reports that vision is better, and numbness in left hand has gone. History of Present Illness HPI narrative: Patient is a 27-year-old female with past medical history of chronic headache and intermittent migraines who presents emergency department for evaluation of headache. Patient states that she has headaches at baseline, right-sided that occur weekly. To date she has had a total of 4 migraines that present with bright vision, pixelated vision changes, tingling tongue, tingling left hand. She experienced this today when she was at work, vision resolved prior to arrival and she drove herself here for continued evaluation and was transported here from urgent treatment center due to possible need for diagnostic work-up. Upon my evaluation patient is stating that her symptoms have resolved with regards to the vision, she has mild tingling of her left hand fingertips and tongue consistent with her previous migraines. There is no quality that is different about this from previous headaches. No medical intervention prior to arrival. No weakness. No other acute complaints at this time. Related Data Home Medications Medication Instructions Recorded Confirmed etonogestrel 68 mg subdermal 68 mg subdermal ONCE Control 12/28/22 01/29/23 implant (Nexplanon) escitalopram oxalate 10 mg tablet 10 mg PO DAILY Depression 01/29/23 01/29/23 (Lexapro) estradiol 2 mg tablet (Estrace) 2 mg PO DAILY HELP WITH PERIODS 01/29/23 01/29/23 Allergies Allergy/AdvReac Type Severity Reaction Status Date / Time Penicillins [PENICILLINS] Allergy Unknown Verified 12/28/22 11:04 Sulfa (Sulfonamide Allergy Unknown Verified 12/28/22 11:04 Antibiotics) [SULFA (SULFONAMIDE ANTIBIOTICS)] adhesive tape Allergy Rash Verified 12/28/22 11:04 prochlorperazine Allergy Verified 01/29/23 13:09 [From Compazine] [facility] Disclaimer: The information contained in this section may have been updated after the patient was seen, as this information can be updated by other users. Medical History Depression Surgical History Hx of section Family History Other Cancer Diabetes Hyperlipidemia Hypertension Social History Smoking Status: Current every day smoker tobacco type: cigarettes packs per day: 1 alcohol intake: never substance use type: marijuana current occupational status: other Travel in the last 8 weeks: None housing: house ROS Obtained: Yes Syst
--- NOTE | 2023-01-29 12:46 | ECG_ITS ---
APPROVED REPORT Exam: Resting ECG HR:41 bpm ECG Measurements Heart Rate 41 AXES ME 142 P 59 QRSd 83 QRS 65 QT 425 T 69 QTc 363 Conclusion SINUS BRADYCARDIA Late r wave progression ABNORMAL ECG UNCONFIRMED REPORT Electronically signed by : Curly Nunes MD 01/30/2023 17:16:25
[2023-01-29 13:50] LABS: HCG,Quantitative < 2 mIU/ml (0-5.42)
[2023-01-29 14:04] VITALS: BP 94/68; PULSE 41; RESP 18; TEMP 36.7; O2SAT 99
== END 2023-01-29 14:06 | disposition home or self-care (01) ==
LOC: UTC 11:23 → ER 12:03
PROVIDERS: Emergency Provider Emergency Medicine; PCP Internal Medicine Adolescent Medicine
DX: R51.9 Headache, unspecified (principal); H53.8 Other visual disturbances; R20.0 Anesthesia of skin; F32.A Depression, unspecified; F17.210 Nicotine dependence, cigarettes, uncomplicated
CPT/HCPCS: 84702; 93005; 96361; 96374; 96375; 99284

== ENCOUNTER 2023-07-28 12:13 | Emergency (ER) | payer MEDICAID, SELFPAY ==
[2023-07-28 12:13] VITALS: BP 108/74; PULSE 59; RESP 17; TEMP 36.9; O2SAT 99; BMI 23.3
--- NOTE | 2023-07-28 12:29 | PC.NURSE ---
DR FLAHERTY AT BEDSIDE
--- NOTE | 2023-07-28 12:33 | HMH.EDGENADL ---
Discharge Plan Disposition Patient Disposition: Home, Self-Care Chief Complaint: Nausea/Vomiting/Diarrhea Prescriptions Prescriptions: No Action Nexplanon 68 mg implant 68 mg subdermal ONCE estradiol [Estrace] 2 mg tablet 2 mg PO DAILY escitalopram oxalate [Lexapro] 10 mg tablet 10 mg PO DAILY Referrals Follow up/Referrals: Curly Nunes MD [Primary Care Provider] - See instructions Activity Restrictions/Add. Instructions Additional Instructions/Restrictions: At this time it was felt you are safe to be discharged home. If new or worsening symptoms please do not hesitate to return the emergency department. If symptoms persist please follow-up with your family doctor as you are able. Clinical Impressions Clinical Impression: Vomiting, Diarrhea Instructions Patient Instructions: DI for Nausea -- Adult, DI for Diarrhea and Traveler's Diarrhea -- Adult Discharge ED Provider: Fredi Elkins General Adult HPI General Chief complaint: Nausea/Vomiting/Diarrhea Stated complaint: nausea,vomiting Time Seen by Provider: 07/28/23 12:21 History of Present Illness HPI narrative: Patient is a 28-year-old female who presents emergency department for evaluation of nausea, vomiting, diarrhea, dysuria. Onset was acute, over the last 24 hours. Positive sick contacts at home. Due to inability to tolerate p.o. with persistent retching she presents here for continued evaluation. Vomiting and diarrhea nonbloody. Related Data Home Medications Medication Instructions Recorded Confirmed etonogestrel 68 mg subdermal 68 mg subdermal ONCE Control 12/28/22 01/29/23 implant (Nexplanon) escitalopram oxalate 10 mg tablet 10 mg PO DAILY Depression 01/29/23 01/29/23 (Lexapro) estradiol 2 mg tablet (Estrace) 2 mg PO DAILY HELP WITH PERIODS 01/29/23 01/29/23 Allergies Allergy/AdvReac Type Severity Reaction Status Date / Time Penicillins [PENICILLINS] Allergy Unknown Verified 12/28/22 11:04 Sulfa (Sulfonamide Allergy Unknown Verified 12/28/22 11:04 Antibiotics) [SULFA (SULFONAMIDE ANTIBIOTICS)] adhesive tape Allergy Rash Verified 12/28/22 11:04 prochlorperazine Allergy Verified 01/29/23 13:09 [From Compazine] [facility] Disclaimer: The information contained in this section may have been updated after the patient was seen, as this information can be updated by other users. Medical History Depression Surgical History Hx of section Family History Other Cancer Diabetes Hyperlipidemia Hypertension Social History Smoking Status: Current every day smoker tobacco type: cigarettes packs per day: 1 alcohol intake: never substance use type: marijuana current occupational status: other Travel in the last 8 weeks: None housing: house ROS Obtained: Yes Systems reviewed as appropriate & no additional complaints except as documented Physical Exam General General appearance: alert and other (Awake retching in bed.) Head Head exam: atraumatic and normocephalic Eye Eye exam: Present PERRL ENT ENT exam: Present mucous membranes moist Neck Neck exam: Present normal inspection Chest Chest inspection: Present normal inspection and symmetric chest wall rise Respiratory Respiratory exam: Present normal lung sounds bilaterally; Absent respiratory distress Cardiovascular Cardiovascular exam: Present regular rate and normal rhythm Abdominal Exam Abdominal exam: Present soft; Absent tenderness Extremities Exam Extremities exam: Present normal inspection Neurological Exam Neurological exam: Present alert Psychiatric Psychiatric exam: Present normal affect Skin Skin exam: Present warm and dry Medical Decision Making Zay Inquiry Pt receiving controlled substance: No Vital Signs: 07/28/23 12:13 07/28/23 13:22 Temperature 98.5 F Temperature Source Oral Pulse Rate 48 L Pulse Rate [Right] 59 L Respiratory Rate 17 18 Blood Pressure 94/51 L Blood Pressure [Right Arm] 108/74 L Blood Pressure Mean [Right Arm] 85 Blood Pressure Source [Right Arm] Automatic Cuff 02 Sat by Pulse Oximetry 99 98 Oxygen Delivery Method Room Air Lab Data Lab Results 07/28/23 12:30: WBC 13.7 H, RBC 5.42 H, Hgb 16.5 H, Hct 50.1 H, MCV 92.4, MCH 30.4, MCHC 32.9, RDW 13.1, Plt Count 297, MPV 8.8, Neut % (Auto) 89.5 H, Lymph % (Auto) 4.2 L, [place] % (Auto) 4.0, Eos % (Auto) 2.0, Baso % (Auto) 0.3, Neut # (Auto) 12.3 H, Lymph # (Auto) 0.6 L, [place] # (Auto) 0.6, Eos # (Auto) 0.3, Baso # (Auto) 0.0, Sodium 139, Potassium 4.7, Chloride 110 H, Carbon Dioxide 19 L, Anion Gap 14.7, BUN 15, Creatinine 0.70, Estimated GFR 99, Est GFR ( Amer) 120, Glucose 141 H, Calcium 9.7, Total Bilirubin 1.4 H, AST 38 H, ALT 25, Alkaline Phosphatase 102, Total Protein 8.0, Albumin 4.8, Globulin 3.2, Albumin/Globulin Ratio 1.5, Lipase 98, Serum HCG, Qual Negative 07/28/23 12:52: Urine Color Yellow, Urine Appearance Clear, Urine pH 5.5, Ur Specific [place] >= 1.030, Urine Protein Trace, Urine Glucose (UA) Negative, Urine Ketones 3+, Urine Blood Negative, Urine Nitrate Negative, Urine Bilirubin 1+ A, Urine Urobilinogen 0.2, Ur Leukocyte Esterase Negative, Urine RBC None, Urine WBC Occasional, Ur Squamous Epith Cells Occasional, Amorphous Sediment 4+, Urine Bacteria 2+ 07/28/23 12:30 07/28/23 12:30 Orders (Tests/Meds): ED MEDICATIONS Discontinued Medications Generic Name Dose Route Start Last Admin Trade Name Florinq PRN Reason Stop Dose Admin Acetaminophen 1,000 mg 07/28/23 12:35 07/28/23 12:57 Acetaminophen 1,000mg/100ml Vial IV 07/28/23 12:36 1,000 mg ONCE ONE Administration Lactated Ringer's 1,000 mls @ 999 mls/hr 07/28/23 12:32 07/28/23 12:57 Lactated Ringer's 1000 Ml Bag IV 07/28/23 13:32 999 mls/hr .Q1H1M ONE Administration Ondansetron HCl 4 mg 07/28/23 12:35 07/28/23 12:57 Ondansetron 4mg/2ml Vial IV 07/28/23 12:36 4 mg ONCE ONE Administration ORDERS Category Date Time Status CBC w/Auto Diff [Complete Blood Count Auto Diff] Stat Lab 07/28/23 12:30 Results CMP [Comprehensive Metabolic Panel] Stat Lab 07/28/23 12:30 Completed HCG Qualitative, Serum Stat Lab 07/28/23 12:30 Completed Lipase Stat Lab 07/28/23 12:30 Completed Rapid PCR Covid and Flu A/B Stat Lab 07/28/23 12:35 Received UA [Urinalysis and Microscopic] Stat Lab 07/28/23 12:52 Completed Urine Culture Stat Micro 07/28/23 12:52 Received Medical Decision Narrative: In summary patient is a 28-year-old female past medical history described above presents emergency department for evaluation of vomiting, diarrhea, dysuria with positive sick contacts at home. Patient is hemodynamically stable upon arrival, retching at bedside. Differential diagnosis includes viral syndrome, urinary tract infection, pancreatitis, , among others. Workup will be conducted with hematologic labs, viral swab, urinalysis. Initial interventions include crystalloid bolus, Zofran, IV Tylenol. Initial workup reviewed by me, hematologic labs are nonactionable, viral swab negative. Upon repeat evaluation patient underwent p.o. trial was successful. Given this I suspect that patient has viral syndrome and is appropriate for outpatient management at this time. Patient has Zofran at home which is available to her and does not require another prescription. Patient was given return precautions. Critical Care Critical Care Time Critical Care Time: No
[2023-07-28 12:55] LABS: Basophils % 0.3 % (0.1-2.0); Eosinophils # 0.3 K/mm3 (0.0-0.4); Hematocrit 50.1 % (37.0-47.0); Hemoglobin 16.5 g/dL (12.2-16.2); Lymphocytes # 0.6 K/mm3 (0.7-4.5); Lymphocytes % 4.2 % (10-50); Mean Corpuscular HGB Conc 32.9 g/dL (31.8-35.4); Mean Corpuscular Hemoglobin 30.4 pg (27.0-31.2); Mean Corpuscular Volume 92.4 fl (81-99); Mean Platelet Volume 8.8 fl (7.4-10.4); Monocytes # 0.6 K/mm3 (0.1-1.0); Neutrophils # 12.3 K/mm3 (1.8-7.8); Neutrophils % 89.5 % (37.0-80.0); Platelet Count 297 K/mm3 (142-424); Red Blood Count 5.42 M/mm3 (4.20-5.40); Red Cell Distribution Width 13.1 % (11.5-17.5); White Blood Count 13.7 K/mm3 (4.8-10.8)
[2023-07-28 12:56] LABS: Coronavirus 19, PCR Not Detected (NotDetected); Influenza A, PCR Not Detected (NotDetected); Influenza B, PCR Not Detected (NotDetected)
[2023-07-28] MEDS: ONDANSETRON 4MG/2ML VIAL 4 MG IV (12:57)
[2023-07-28] MEDS: ACETAMINOPHEN 1,000MG/100ML VIAL 1000 MG IV (12:57)
[2023-07-28] MEDS: LACTATED RINGERS 1000ML 1,000 ML 999 ML IV (12:57)
[2023-07-28 12:59] LABS: Chloride 110 mmol/L (98-107); Potassium 4.7 mmoL/L (3.5-5.1); Sodium 139 mmol/L (136-145)
[2023-07-28 13:02] LABS: Microscopic, Urine URINE MICROSCOPIC (MICROSCOPIC)
[2023-07-28 13:02] LABS: Alanine Aminotransferase 25 U/L (12-78); Albumin Level 4.8 g/dl (3.5-5.0); Albumin/Globulin Ratio 1.5 (1.1-1.8); Alkaline Phosphatase 102 U/L (38-126); Anion Gap 14.7 mEq/L (5-15); Aspartate Amino Transferase 38 U/L (14-36); Bilirubin,Total 1.4 mg/dl (0.2-1.3); Blood Urea Nitrogen 15 mg/dl (7-17); Calcium 9.7 mg/dl (8.4-10.2); Carbon Dioxide 19 mmol/L (22.0-30.0); Estimated Glomerular Filt Rate 99 ml/min (>60); GFR (African American) 120 ML/MIN (>60); Globulin 3.2 g/dL (1.3-3.2); Glucose 141 mg/dl (74-100); Lipase 98 U/L (23-300)
[2023-07-28 13:03] LABS: HCG Qualitative, Serum Negative (Negative)
[2023-07-28 13:07] LABS: Appearance,Urine CLEAR (Clear); Blood, Urine Negative (Negative); Color,Urine YELLOW (Yellow); Glucose,Urine (UA) Negative (Negative); Ketones,Urine 3+ (Negative); Leukocyte Esterase,Urine Negative (Negative); Nitrate,Urine Negative (Negative); PH,Urine 5.5 (5.0-8.5); Protein,Urine TRACE (Negative); Specific Gravity, Urine >= 1.030 (1.005-1.030); Urobilinogen,Urine 0.2 EU/dl (0.2)
[2023-07-28 13:08] LABS: MANUAL DIFFERENTIAL MANUAL DIFFERENTIAL (MANUAL DIFF)
--- NOTE | 2023-07-28 13:09 | PC.NURSE ---
Updated pt's grandmother and mother on pt condition
[2023-07-28 13:15] LABS: Bilirubin,Urine 1+ (Negative)
[2023-07-28 13:22] VITALS: BP 94/51; PULSE 48; RESP 18; O2SAT 98
[2023-07-28 13:28] LABS: Amorphous Sediment,Urine 4+ /lpf; Bacteria,Urine 2+ /lpf; Squamous Epithelial Cell,Urine Occasional #/hpf (0-5); WBC,Urine Occasional #/hpf (0-3)
--- NOTE | 2023-07-28 13:29 | PC.NURSE ---
pt is tolerating po fluids @ this time
--- NOTE | 2023-07-28 13:33 | PC.NURSE ---
DR FLAHERTY AT BEDSIDE TO REEVALUATE PT
[2023-07-28 14:00] VITALS: BP 105/67; PULSE 52; RESP 16; TEMP 36.9; O2SAT 99
[2023-07-28 14:28] LABS: Lymphocytes % 2 % (10-50); Monocytes % 1 % (2-9); Neutrophils % 97 % (42-76); Platelet Estimate Normal; RBC Morphology Normal; Total Cells Counted 100
--- NOTE | 2023-08-01 08:33 | PC.NURSE ---
DISCUSSED URINE CULTURE WITH DR GERMAN, NO NEW ORDERS
== END 2023-07-28 14:00 | disposition home or self-care (01) ==
PROVIDERS: Emergency Provider Emergency Medicine; PCP Internal Medicine Adolescent Medicine
DX: R11.2 Nausea with vomiting, unspecified; R19.7 Diarrhea, unspecified; R30.0 Dysuria; B96.29 Other Escherichia coli [E. coli] as the cause of diseases classified elsewhere; B96.89 Other specified bacterial agents as the cause of diseases classified elsewhere; F17.210 Nicotine dependence, cigarettes, uncomplicated
CPT/HCPCS: 80053; 81001; 83690; 84703; 85007; 85025; 87086; 87636; 96361; 96374; 96375; 99284; J0131; J2405

== ENCOUNTER 2023-10-02 13:17 | Outpatient (CLI) | payer MEDICAID, SELFPAY ==
--- NOTE | 2023-10-02 13:20 | US_ITS ---
PROCEDURE: US TRANSVAGINAL CLINICAL INDICATION: Pelvic Pain COMPARISON: No exams were available for comparison FINDINGS: Transvaginal sonographic images of the pelvis were obtained. UTERUS: 8cm x 5cmx 4cm anteverted with a combined endometrial thickness of 5.9mm. A scar is seen. There is a small amount of fluid within the endometrium. There is prominent vasculature within the uterine muscle. LEFT OVARY: [id number] with a volume of 3.9ml. There is a small follicle measuring 0.9 cm x 0.7 cm x 0.7 cm. RIGHT OVARY: 4cmx [id number] with a volume of 15.4ml. There is a follicle measuring 3.0 cm x 1.9 cm. Both ovaries are seen and appear normal. Doppler flow to both ovaries are seen. There is no fluid in the cul-de-sac. IMPRESSION: 1. Anteverted uterus normal in shape and size. 2. The endometrium is thin and there is a small amount of fluid within the endometrium. 3. There is prominent vasculature within the uterus. 4. Both ovaries are seen and appear normal. There is a follicle in the left ovary measuring 0.9 cm. 5. There is a follicle in the right ovary measuring 3.0 cm. 6. No fluid in the cul-de-sac. Dictated by: Mariusz Augustin MD 10/02/2023 18:05 Mariusz Augustin MD in [place] 10/02/2023 18:05
== END 2023-10-02 23:59 | disposition home or self-care (01) ==
LOC: RAD 13:18
PROVIDERS: PCP Internal Medicine Adolescent Medicine; Visit Provider Nurse Practitioner Obstetrics & Gynecology
DX: R10.2 Pelvic and perineal pain (principal)
CPT/HCPCS: 76830

== ENCOUNTER 2024-07-30 09:35 | Outpatient (CLI) | payer MEDICAID, SELFPAY ==
--- NOTE | 2024-07-30 09:40 | US_ITS ---
PROCEDURE: US TRANSVAGINAL CLINICAL INDICATION: Pelvic Pain COMPARISON: CT CT ABDOMEN PELVIS W CON from 03/25/2022 US US TRANSVAGINAL from 10/02/2023 FINDINGS: Transvaginal sonographic images of the pelvis were obtained. UTERUS: 7.9 cm x 5.1cmx 3.8 cm anteverted with a combined endometrial thickness of 4.9mm. There is a trace amount of fluid at the fundus of the uterus. The endometrium appears thin. A scar is present. LEFT OVARY: 3.3cmx2.6 cmx2.5cm with a volume of 11.2ml. There is a follicle in the left ovary that measures 2.2 cm x 2.2 cm x 2.1 cm. RIGHT OVARY: 2.4cmx 2.0cmx1.9 cm with a volume of 4.8ml. There are several small peripheral follicles. There appears to be a resolving corpus luteum within the ovary. Both ovaries are seen and appear normal. Doppler flow to both ovaries are seen. There is no fluid in the cul-de-sac. IMPRESSION: 1. Anteverted uterus normal in shape and size. The endometrium is thin and there is a trace amount of fluid at the fundus of the uterus. 2. Both ovaries are seen and appear normal. Within the left ovary is a follicle that measures 2.2 cm. 3. No fluid in the cul-de-sac. Dictated by: Mariusz Augustin MD 07/30/2024 11:56 Mariusz Augustin MD in [facility] 07/30/2024 11:56
== END 2024-07-30 23:59 | disposition home or self-care (01) ==
LOC: RAD 09:37
PROVIDERS: PCP Internal Medicine Adolescent Medicine; Visit Provider Nurse Practitioner Obstetrics & Gynecology
DX: R10.2 Pelvic and perineal pain (principal)
CPT/HCPCS: 76830